=== PATIENT | female | born 1955 | race Caucasian/White ===

== ENCOUNTER 2020-02-20 10:29 | Observation (INO) | payer SELFPAY ==
[2020-02-20] MEDS ORDERED: METHYLPREDNISOLONE 40 MG INJ ONE (11:34)
[2020-02-20] MEDS ORDERED: DIPHENHYDRAMINE 50 MG/ML VIAL ONE (11:34)
[2020-02-20] MEDS ORDERED: FAMOTIDINE 20 MG/2 ML VIAL IV ONE (11:34)
[2020-02-20 11:46] LABS: Protime INR 0.97
[2020-02-20 11:50] LABS: Absolute Lymphocytes (CBC) 2.2 K/uL (0.7-4.9); Basophils % 0.4 % (0-1.3); Hematocrit 42.9 % (36.0-45.0); Lymphocytes % 18.4 % (15.3-44.8); MPV 8.8 fL (7.6-11.3); RBC Red Blood Cell Count 4.89 M/uL (3.86-4.86)
[2020-02-20 11:52] LABS: Albumin 3.5 g/dL (3.4-5.0); Bilirubin Direct 0.2 mg/dL (0-0.2); Bilirubin Total 0.6 mg/dL (0.2-1.0); Potassium 4.3 mmol/L (3.5-5.1); Protein, Total 7.1 g/dL (6.4-8.2)
--- NOTE | 2020-02-20 12:17 | EDPHYS ---
Physician Documentation [facility] Name: Anastasiia Bonner Age: 64 yrs Sex: Female : 1955 Arrival Date: 02/20/2020 Time: 10:30 Bed 19 Private MD: ED Physician Luis Miguel Moeller HPI: 02/19 11:15 This 64 yrs old Female presents to ER via Ambulatory with complaints of cp Allergic Reaction, Mouth Swelling. 11:15 The patient presents with rash, that is diffuse, swelling of the lips, swelling of the cp tongue. Onset: The symptoms/episode began/occurred 6 day(s) ago. Associated signs and symptoms: Pertinent negatives: abdominal pain, chest pain, fever, headache, shortness of breath, vomiting. Possible causes: The patient has no known obvious cause for the symptoms. At home the patient or guardian has treated the symptoms with Benadryl, steroids. Severity of symptoms: in the emergency department the symptoms are worse. The patient has not experienced similar symptoms in the past. Historical: - Allergies: 10:47 Unknown medication; aa5 - PMHx: 10:47 Hypertension; aa5 - PSHx: 10:47 Partial removal of intestine; Hernia repair; abdominal mesh; aa5 - Immunization history:: Adult Immunizations unknown. - Social history:: Smoking status: Patient reports the use of cigarette tobacco products. ROS: 11:20 Constitutional: Negative for body aches, chills, fever, poor PO intake. cp 11:20 Eyes: Negative for injury, pain, redness, and discharge. cp 11:20 ENT: Positive for difficulty swallowing, swelling of lips and tongue, Negative for drainage from ear(s), ear pain, sore throat, difficulty handling secretions. 11:20 Respiratory: Negative for cough, shortness of breath, wheezing. 11:20 Abdomen/GI: Negative for abdominal pain, vomiting, diarrhea, constipation. 11:20 Skin: Positive for rash. 11:20 Neuro: Negative for altered mental status, headache, weakness. 11:20 All other systems are negative. Exam: 11:30 Constitutional: The patient appears in no acute distress, alert, awake, cp non-diaphoretic, non-toxic, well developed, well nourished, uncomfortable. 11:30 Head/face: Noted is swelling, that is mild, of the mouth. cp 11:30 Eyes: Periorbital structures: appear normal, Pupils: equal, round, and reactive to light and accomodation, Extraocular movements: intact throughout, Conjunctiva: normal, no exudate, no injection, Lids and lashes: appear normal, bilaterally. 11:30 ENT: External ear(s): are unremarkable, Ear canal(s): are normal, clear, TM's: bulging, is not appreciated, bilaterally, erythema, is not appreciated, bilaterally, Nose: is normal, Mouth: Lips: mild swelling, Oral mucosa: pink and intact, Tongue: is swollen, mild, Posterior pharynx: Airway: no evidence of obstruction, patent, Uvula: normal, swelling, is not appreciated, erythema, is not appreciated. 11:30 Neck: ROM/movement: is normal, is supple, without pain, no range of motions cp limitations, no nuchal rigidity. 11:30 Chest/axilla: Inspection: normal, Palpation: is normal, no crepitus, no tenderness. 11:30 Cardiovascular: Rate: normal, Rhythm: regular, Edema: is not appreciated. 11:30 Respiratory: the patient does not display signs of respiratory distress, Respirations: normal, no use of accessory muscles, no retractions, labored breathing, is not present, Breath sounds: are clear throughout, no decreased breath sounds, no stridor, no wheezing. 11:30 Abdomen/GI: Inspection: abdomen appears normal, Bowel sounds: active, all quadrants, Palpation: abdomen is soft and non-tender, in all quadrants. 11:30 Skin: consistent with hives, and is diffusely located. 11:30 Neuro: Orientation: to person, place \T\ time. Mentation: is normal, Motor: moves all fours, strength is normal. 12:03 ECG was reviewed by the Attending Physician. cp Vital Signs: 10:44 BP 118 / 81; Pulse 65; Resp 16 S; Temp 98.4(O); Pulse Ox 99% on R/A; Weight 80.74 kg aa5 (R); Height 5 ft. 4 in. (162.56 cm) (R); Pain 4/10; 11:45 BP 148 / 77; Pulse 58; Resp 20; Pulse Ox 96% on R/A; ca1 12:18 BP 147 / 89; Pulse 61; Resp 17 S; Pulse Ox 96% on R/A; ca1 12:41 BP 143 / 96; Pulse 61; Resp 17 S; Pulse Ox 97% on R/A; ca1 13:09 BP 137 / 83; Pulse 61; Resp 18 S; Pulse Ox 97% on R/A; ca1 13:38 BP 145 / 78; Pulse 62; Resp 20; Pulse Ox 96% on R/A; ca1 14:21 BP 149 / 92; Pulse 60; Resp 17 S; Pulse Ox 97% on R/A; ca1 10:44 Body Mass Index 30.55 (80.74 kg, 162.56 cm) aa5 MDM: 11:02 Patient medically screened. herlinda 11:30 Differential diagnosis: anaphylaxis, angioedema. cp 12:15 Data reviewed: vital signs, nurses notes, lab test result(s), EKG. Physician cp consultation: Bryan Garnett MD was called at 12:15, was contacted at 12:15, regarding admission, to the medical/surgical unit. patient's condition. 02/19 11:10 Order name: Basic Metabolic Panel; Complete Time: 11:58 cp 02/19 11:58 Interpretation: Normal except: CL 108; BUN 23; GFR 60. cp 02/19 11:10 Order name: CBC with Diff; Complete Time: 11:58 cp 02/19 11:58 Interpretation: Normal except: WBC 12.2; RBC 4.89; REMEDIOS% 73.9; NEUT A 9.0. cp 02/19 11:10 Order name: LFT's; Complete Time: 11:58 cp 02/19 11:59 Interpretation: Normal except: AST 11; ALK 118; GLOB 3.6; A/G 1.0. cp 01 11:10 Order name: Magnesium; Complete Time: 11:58 cp 02/19 11:10 Order name: PT-INR; Complete Time: 11:58 cp 02/19 12:14 Order name: Urine Dipstick--Ancillary (enter results); Complete Time: 12:48 eb 02/19 12:48 Interpretation: Normal except: UESTR 1+. cp 02/19 11:10 Order name: Cardiac monitoring; Complete Time: 11:13 cp 02/19 11:10 Order name: IV Saline Lock; Complete Time: 11:25 cp 02/19 11:10 Order name: Labs collected and sent; Complete Time: 11:25 cp 05/01 11:10 Order name: O2 Per Protocol; Complete Time: 11: cp 02/19 11:10 Order name: O2 Sat Monitoring; Complete Time: : cp 02/19 11:10 Order name: Urine Dipstick-Ancillary (obtain specimen); Complete Time: 12:11 cp EC:03 Rate is 61 beats/min. Rhythm is regular. QRS interval is normal. QT interval is normal. cp Interpreted by me. Reviewed by me. Administered Medications: : Drug: SOLU-Medrol 80 mg Route: IVP; Site: right antecubital; aa5 12:30 Follow up: Response: No adverse reaction ca1 11:26 Drug: Pepcid 20 mg Route: IVP; Site: right antecubital; aa5 12:29 Follow up: Response: No adverse reaction ca1 11:27 Drug: Benadryl 50 mg Route: IVP; Site: right antecubital; aa5 12:29 Follow up: Response: No adverse reaction ca1 Disposition: 12:30 Chart complete. cp Disposition: 02/20/20 12:16 Hospitalization ordered by Bryan Garnett for Observation. Preliminary diagnosis is Anaphylactic reaction due to adverse effect of correct drug or medicament properly administered. - Bed requested for Telemetry/MedSurg (observation). - Status is Observation. ca1 - Condition is Stable. - Problem is new. - Symptoms are unchanged. Addendum: 02/21/2020 14:33 Co-signature as Attending Physician, Luis Miguel Moeller MD I agree with the assessment and c alaniz plan of care. Signatures: Dispatcher [employer] EDAZ Luis Miguel Moeller MD MD cha Calderon, Audri, RN RN aa5 Luis Miguel Mckeon PA PA cp Botello, Elizabeth eb Acob, Cheryl RN RN ca1 Corrections: (The following items were deleted from the chart) 02/19 14:02 12:16 Hospitalization Ordered by Bryan Garnett MD for Observation. Preliminary diagnosis eb is Anaphylactic reaction due to adverse effect of correct drug or medicament properly administered. Bed requested for Telemetry/MedSurg (observation). Status is Observation. Condition is Stable. Problem is new. Symptoms are unchanged. cp 14:02 14:02 02/20/2020 12:16 Hospitalization Ordered by Bryan Garnett MD for Observation. eb Preliminary diagnosis is Anaphylactic reaction due to adverse effect of correct drug or medicament properly administered. Bed requested for Telemetry/MedSurg (observation). Status is Observation. Condition is Stable. Problem is new. Symptoms are unchanged. eb 14:25 14:02 02/20/2020 12:16 Hospitalization Ordered by Bryan Garnett MD for Observation. ca1 Preliminary diagnosis is Anaphylactic reaction due to adverse effect of correct drug or medicament properly administered. Bed requested for Telemetry/MedSurg (observation). Status is Observation. Condition is Stable. Problem is new. Symptoms are unchanged. eb
--- NOTE | 2020-02-20 12:17 | ER ---
Nurse's Notes [facility] Name: Anastasiia Bonner Age: 64 yrs Sex: Female : 1955 Arrival Date: 02/20/2020 Time: 10:30 Bed 19 Private MD: Diagnosis: Anaphylactic reaction due to adverse effect of correct drug or medicament properly administered Presentation: 02/19 10:44 Chief complaint: Patient states: "I started with a hive on my abdomen on Sunday and aa5 now it's spreading all over". Hives noted to neck and abdomen. Pt states "my mouth is swollen too". Pt taking Prednisone and Benadryl since Sunday. Coronavirus screen: Proceed with normal triage. Patient denies a cough. Patient denies shortness of breath or difficulty breathing. Patient denies measured and/or subjective temperature greater than 100.4F prior to today's visit. Patient denies travel on a cruise ship or to a country the [facility] currently lists as an affected area. Patient denies contact with known and/or suspected case of COVID-19. Ebola Screen: Patient negative for fever greater than or equal to 101.5 degrees Fahrenheit, and additional compatible Ebola Virus Disease symptoms. Onset: The symptoms/episode began/occurred 6 day(s) ago. Anaphylaxis evaluation, no signs or symptoms of anaphylaxis were noted. Initial Sepsis Screen: Does the patient meet any 2 criteria? No. Patient's initial sepsis screen is negative. Does the patient have a suspected source of infection? No. Patient's initial sepsis screen is negative. Risk Assessment: Do you want to hurt yourself or someone else? Patient reports no desire to harm self or others. Onset of symptoms was January 2020. 10:44 Method Of Arrival: Ambulatory aa5 10:44 Acuity: MARJORIE 4 aa5 Historical: - Allergies: 10:47 Unknown medication; aa5 - PMHx: 10:47 Hypertension; aa5 - PSHx: 10:47 Partial removal of intestine; Hernia repair; abdominal mesh; aa5 - Immunization history:: Adult Immunizations unknown. - Social history:: Smoking status: Patient reports the use of cigarette tobacco products. Screenin:55 Abuse screen: Denies threats or abuse. Denies injuries from another. Nutritional ca1 screening: No deficits noted. Tuberculosis screening: No symptoms or risk factors identified. Fall Risk None identified. Assessment: 10:55 General: Appears in no apparent distress. comfortable, Behavior is calm, cooperative, ca1 appropriate for age. Pain: Denies pain. Neuro: Level of Consciousness is awake, alert, obeys commands, Oriented to person, place, time, situation. Cardiovascular: Heart tones S1 S2 present Capillary refill < 3 seconds Patient's skin is warm and dry. Respiratory: Airway is patent Respiratory effort is even, unlabored, Respiratory pattern is regular, symmetrical, Breath sounds are clear bilaterally. GI: Abdomen is round non-distended, Bowel sounds present X 4 quads. Abd is soft and non tender X 4 quads. : No signs and/or symptoms were reported regarding the genitourinary system. EENT: Throat is clear Reports "swelling on tongue and starting to go down on throat". Derm: Skin is intact, is healthy with good turgor, Skin is pink, warm \\T\\ dry. Rash noted that is raised, on scalp, abdomen and neck. Musculoskeletal: Circulation, motion, and sensation intact. Capillary refill < 3 seconds. 11:45 Reassessment: Patient appears in no apparent distress at this time. Patient and/or ca1 family updated on plan of care and expected duration. Pain level reassessed. Patient is alert, oriented x 3, equal unlabored respirations, skin warm/dry/pink. 12:41 Reassessment: Patient appears in no apparent distress at this time. Patient and/or ca1 family updated on plan of care and expected duration. Pain level reassessed. Patient is alert, oriented x 3, equal unlabored respirations, skin warm/dry/pink. Dr. Garnett at bedside. 13:38 Reassessment: Patient appears in no apparent distress at this time. Patient and/or ca1 family updated on plan of care and expected duration. Pain level reassessed. Patient is alert, oriented x 3, equal unlabored respirations, skin warm/dry/pink. 14:21 Reassessment: Patient appears in no apparent distress at this time. Patient and/or ca1 family updated on plan of care and expected duration. Pain level reassessed. Patient is alert, oriented x 3, equal unlabored respirations, skin warm/dry/pink. Vital Signs: 10:44 BP 118 / 81; Pulse 65; Resp 16 S; Temp 98.4(O); Pulse Ox 99% on R/A; Weight 80.74 kg aa5 (R); Height 5 ft. 4 in. (162.56 cm) (R); Pain 4/10; 11:45 BP 148 / 77; Pulse 58; Resp 20; Pulse Ox 96% on R/A; ca1 12:18 BP 147 / 89; Pulse 61; Resp 17 S; Pulse Ox 96% on R/A; ca1 12:41 BP 143 / 96; Pulse 61; Resp 17 S; Pulse Ox 97% on R/A; ca1 13:09 BP 137 / 83; Pulse 61; Resp 18 S; Pulse Ox 97% on R/A; ca1 13:38 BP 145 / 78; Pulse 62; Resp 20; Pulse Ox 96% on R/A; ca1 14:21 BP 149 / 92; Pulse 60; Resp 17 S; Pulse Ox 97% on R/A; ca1 10:44 Body Mass Index 30.55 (80.74 kg, 162.56 cm) aa5 ED Course: 10:30 Patient arrived in ED. as 10:38 Arm band placed on Patient placed in an exam room, on a stretcher. aa5 10:46 Triage completed. aa5 10:53 Carlene Boyle, RN is Primary Nurse. ca1 10:55 Patient has correct armband on for positive identification. Bed in low position. Call ca1 light in reach. Side rails up X 1. Pulse ox on. NIBP on. Warm blanket given. 11:01 Luis Miguel Mckeon PA is PHCP. cp 11:01 Luis Miguel Moeller MD is Attending Physician. cp 11:25 No provider procedures requiring assistance completed. Initial lab(s) drawn, by ar, ca1 sent to lab. Inserted saline lock: 20 gauge in right antecubital area, using aseptic technique. Blood collected. 11:30 EKG done, by biofuels processing technician. reviewed by Luis Miguel ALFONSO. aa5 12:12 Urine collected: clean catch specimen, clear. ca1 12:15 Bryan Garnett MD is Hospitalizing Provider. cp 12:18 Patient admitted, IV remains in place. ca1 Administered Medications: 11:25 Drug: SOLU-Medrol 80 mg Route: IVP; Site: right antecubital; aa5 12:30 Follow up: Response: No adverse reaction ca1 11:26 Drug: Pepcid 20 mg Route: IVP; Site: right antecubital; aa5 12:29 Follow up: Response: No adverse reaction ca1 11:27 Drug: Benadryl 50 mg Route: IVP; Site: right antecubital; aa5 12:29 Follow up: Response: No adverse reaction ca1 Outcome: 12:16 Decision to Hospitalize by Provider. cp 14:22 Admitted to Tele accompanied by tech, via wheelchair, room 425, with chart, Report ca1 called to MAKI Small 14:22 Condition: stable 14:22 Instructed on the need for admit. 14:25 Patient left the ED. ca1 Signatures: Nazia Yi Audri RN RN aa5 Luis Miguel Mckeon PA PA cp Acob, Cheryl, RN RN ca1 Corrections: (The following items were deleted from the chart) 11:13 10:55 Derm: Skin is intact, is healthy with good turgor, Skin is pink, warm \\T\\ dry. ca1 ca1
[2020-02-20 12:33] LABS: Urine Blood NEGATIVE (NEG); Urine Glucose NEGATIVE (NEG); Urine Protein NEGATIVE (NEG); Urine Specific Gravity 1.015 (1.005-1.030); Urine pH 5.5 (5.0-7.0)
[2020-02-20] MEDS ORDERED: DIPHENHYDRAMINE 50 MG/ML VIAL IV PRN (14:25)
[2020-02-20] MEDS ORDERED: ACETAMINOPHEN 500 MG TAB PO PRN (14:25)
[2020-02-20] MEDS ORDERED: ONDANSETRON 4 MG/2 ML VIAL IV PRN (14:25)
[2020-02-20 14:42] VITALS: BMI 30.5
[2020-02-20] MEDS: ENOXAPARIN 40 MG/0.4 ML SQ SCH (14:51)
[2020-02-20] MEDS: NA CHLORIDE 0.9% 1,000 ML IV SCH (14:54)
[2020-02-20] MEDS ORDERED: HOME MED [FLUTICASONE 50MCG NASAL SPRAY] NAS PRN (16:42)
[2020-02-20] MEDS: METHYLPREDNISOLONE 40 MG INJ IV SCH (20:24)
[2020-02-20] MEDS: AMITRIPTYLINE 50 MG TAB PO SCH (20:25)
[2020-02-20] MEDS: SUCRALFATE 1 GM TABLET PO SCH (20:25)
[2020-02-20] MEDS: FAMOTIDINE 20 MG TAB PO SCH (20:25)
[2020-02-20] MEDS: METOPROLOL XL 100 MG TAB PO SCH (20:25)
[2020-02-20] MEDS ORDERED: ROSUVASTATIN 10 MG TAB PO SCH (21:00)
--- NOTE | 2020-02-20 23:03 | HP ---
Date of Admission: 02/20/2020 Chief Complaint: Rash, throat swelling, and tongue swelling. Primary Care Physician: Out of town in [place]. History Of Present Illness: Patient is a 64-year-old female with past medical history of hypertensio n, hypothyroidism, hyperlipidemia, who has been on lisinopril for several years, comes in with rash t hat started on the abdomen, became diffuse and started on steroids for the past 6 days and now associ ated with swelling of the lips, the tongue, as well as some difficulty swallowing despite being on or al steroids. Patient's symptoms are constant, moderate, progressively worsening. Otherwise, denies any nausea, vomiting, fever, chills, or any shortness of breath. No abdominal pain. Denies any jiménez ges in her routine including any detergents or soaps or clothing. Patient is, however, visiting her family here in town from [place]. Patient did use Benadryl at home along with steroids, however, has worsening symptoms. In the ER, her workup revealed mildly elevated white blood cell count 12.2 with neutrophilia. UA was negative, negative nitrite, 1+ leukocyte esterase. Patient was then given Dianne u-Medrol IV and then referred for admission. When seen in the ER, she was awake, alert, oriented x3, did not wish to stay. However, after explaining the risks and benefits, the patient is okay with [facility] for observation. Allergies: NO KNOWN DRUG ALLERGIES. Past Medical History: Hypertension, hyperlipidemia, hypothyroidism. Past Surgical History: Five abdominal surgeries after colon laceration from hernia repair, abdominal mesh. Medications: Lisinopril, Synthroid, and statin. Social History: Patient smokes 2-3 cigarettes per day, smoking for several years. Denies any alcoho l or illicit drug use. Family History: Diabetes runs in the father and brother. Mom's side has heart disease. Review of Systems: Ten-point system reviewed, negative except as per HPI. Physical Examination: Vital Signs: Blood pressure 118/81, pulse 65, respirations 13, temperature 98.4, O2 99% on room air. BMI is 30. General: Awake, alert, and oriented x3. Some mild distress. Appears stated age female. HEENT: Normocephalic, atraumatic. PERRLA. EOMI. Moist mucous membranes. Patient has swelling of her tongue and lips, very minimal perioral swelling. Neck: Supple. No JVD. Trachea midline. CV: S1, S2. Regular rate and rhythm. Peripheral pulses present. Respiratory: Moving air well bilaterally. No wheezing or stridor. No use of accessory muscles. Gastrointestinal: Abdomen is soft, nontender, nondistended. Positive bowel sounds. No guarding or rigidity. Extremities: No clubbing, cyanosis, or edema. No calf tenderness. Neuro: Cranial nerves 2 through 12 intact grossly. No focal neurological deficits. Speech is anthony l. Skin: Patient has mild rash on the abdomen and the posterior leg with some swelling. Also has unrel ated rash on the left lower extremity from ant bites, seems to be well healing. Psych: Mood is okay. Affect is full. Insight and judgment are good. Laboratory Data: Sodium 140, potassium 4.3, chloride 108, CO2 of 28, BUN 23, creatinine 0.95, glucos e 92, calcium 9.3, magnesium 2. AST 11, ALT 32, alkaline phosphatase 118. INR 0.97. WBC 12.2, H an d H 14.3 and 42.9, platelets 197, neutrophils 73.9%. UA; negative nitrite, 1+ leukocyte esterase. M icro is pending. Assessment And Plan: A 64-year-old female with, 1.Anaphylaxis due to drug, likely from lisinopril. We will start on IV steroids as patient has fail ed therapy with oral steroids. Continue with Pepcid IV for H2 blocking effect and diphenhydramine as needed for itching and H1 blockage. Patient will likely benefit from EpiPen upon discharge. The mark griffith was explained the risks of angioedema. Her lisinopril will be stopped and if no other culprit is found, it should be added to her list of allergies. 2.Essential hypertension. Blood pressure is stable at this time in the one-teens. We will hold lis inopril for now. We will use p.r.n. hydralazine for systolic greater than 160. 3.Hypothyroidism. Continue Synthroid. 4.Hyperlipidemia. Continue statin. 5.Deep vein thrombosis prophylaxis with Lovenox. Plan: Admit patient to Med-Surg, place as observation. Likely discharge in the next 6-8 hours if im proved. We will place on telemetry. If no improvement, may need to be observed overnight, to discha rge in a.. /UMAIR Voice ID: [id number]
[2020-02-21] MEDS: NA CHLORIDE 0.9% 1,000 ML IV SCH (01:33)
[2020-02-21 01:59] VITALS: O2SAT 95
[2020-02-21] MEDS ORDERED: LEVOTHYROXINE SOD 0.075 MG TAB PO SCH (06:00)
[2020-02-21 06:02] LABS: Absolute Lymphocytes (CBC) 1.1 K/uL (0.7-4.9); Basophils % 0.4 % (0-1.3); Hematocrit 38.9 % (36.0-45.0); Lymphocytes % 8.4 % (15.3-44.8); MPV 9.2 fL (7.6-11.3); RBC Red Blood Cell Count 4.43 M/uL (3.86-4.86)
[2020-02-21 06:11] LABS: Albumin 3.2 g/dL (3.4-5.0); Bilirubin Total 0.4 mg/dL (0.2-1.0); Potassium 4.1 mmol/L (3.5-5.1); Protein, Total 6.8 g/dL (6.4-8.2)
[2020-02-21 07:41] VITALS: TEMP 98
[2020-02-21] MEDS: FAMOTIDINE 20 MG TAB PO SCH (08:48)
[2020-02-21] MEDS: ENOXAPARIN 40 MG/0.4 ML SQ SCH (08:48)
[2020-02-21] MEDS: SUCRALFATE 1 GM TABLET PO SCH (08:48)
[2020-02-21] MEDS: AMITRIPTYLINE 50 MG TAB PO SCH (08:48)
[2020-02-21] MEDS: METOPROLOL XL 100 MG TAB PO SCH (08:49)
[2020-02-21] MEDS: METHYLPREDNISOLONE 40 MG INJ IV SCH (08:50)
[2020-02-21] MEDS ORDERED: MONTELUKAST 10 MG TAB PO SCH (09:00)
[2020-02-21] MEDS ORDERED: hydroCHLOROthiazide 12.5 MG CAP PO SCH (09:00)
[2020-02-21] MEDS ORDERED: HOME MED 1 EA UNK (Rosuvastatin Calcium [Crestor] 20 MG) PO SCH (09:00)
[2020-02-21 09:23] LABS: Blood Morphology Comment NOT SEEN (NOT SEEN); Platelet Estimate ADEQ
[2020-02-21 11:22] VITALS: BP 150/81
--- NOTE | 2020-02-22 00:30 | DS ---
Date of Discharge: 02/21/2020 Discharge Diagnoses: 1.Acute anaphylaxis secondary to drug reaction from lisinopril. 2.Essential hypertension. 3.Hypothyroidism. 4.Mixed hyperlipidemia on statin. 5.Obesity, BMI 30. Hospital Course: Patient is a 64-year-old female, comes in with rash, throat swelling and tongue swe lling. Patient was started on oral steroid 6 days prior to admission, however had worsening swelling of the lips and tongue, difficulty swallowing, therefore came into the hospital. Patient was starte d on IV steroids, Benadryl as needed, and was counseled regarding avoiding lisinopril and other DIANNE i nhibitors for life. She has an anaphylactic reaction to DIANNE inhibitors and this was added to her all ergy list. Patient understands that she will need to obtain EpiPen from the pharmacy with a script p rovided, electronic script provided for emergencies and to keep her EpiPen with her at all times and to be aware and know how to use an EpiPen which can save her life in case she has throat swelling or lip swelling and shortness of breath. For her uncontrolled blood pressure, the patient will no longe r on DIANNE inhibitor. Her hydrochlorothiazide dose was increased and she will be on potassium replacem ent. She can follow up with her primary care physician to titrate her blood pressure medications. S he will continue her Synthroid and statin for her hypothyroidism and hyperlipidemia respectively. Sh e should have her TSH and lipid panel checked on a regular basis by PCP. Overall, patient did well. She was able to tolerate a diet. Her vital signs remained stable. She was afebrile. Her swelling improved. White count was slightly elevated secondary to steroids. She will be discharged home in a stable condition. Activity: As tolerated. Medications: As per medication reconciliation list. Patient to finish up her course of steroids and then continue taper as prescribed. Followup: Follow up with primary care physician in 1 week. Return to ER for worsening condition. H ave BMP test in 1 week. Diet: Heart healthy. Physical Examination: General: Awake, alert, oriented x3. No acute distress obese female. CV: S1, S2. Respiratory: Moving air well bilaterally. Abdomen: Soft, nontender, nondistended. Positive bowel sounds. Extremities: No clubbing, cyanosis, or edema. Neurologic: Nonfocal. HEENT: Minimal tongue and lip swelling. No drooling. No perioral swelling. /UMAIR Voice ID: [id number] Report ID: [id number]
--- NOTE | 2020-02-22 13:14 | EKG ---
Test Date: 2020-02-20 Test Time: 11:33:36 President + Publisher: LETICIA MEASUREMENT RESULTS: Intervals: Rate: 61 RI: QRSD: 78 QT: 412 QTc: 414 [place]: P: RI: QRS: 52 T: 60 INTERPRETIVE STATEMENTS: Junctional rhythm Abnormal ECG No previous ECG available for comparison Electronically Signed On 02-22-20 13:14:15 CDT by Georges Box
== END 2020-02-21 09:38 | disposition home or self-care (01) ==
LOC: ER 10:29 → ERHOLD 12:26 → 4TH 14:21
PROVIDERS: ADMIT Family Medicine; ATTEND Family Medicine
DX: T88.6XXA Anaphylactic reaction due to adverse effect of correct drug or medicament properly administered, initial encounter (principal); T46.4X5A Adverse effect of angiotensin-converting-enzyme inhibitors, initial encounter; R21 Rash and other nonspecific skin eruption; I10 Essential (primary) hypertension; E03.9 Hypothyroidism, unspecified; E78.2 Mixed hyperlipidemia; F17.210 Nicotine dependence, cigarettes, uncomplicated; E66.9 Obesity, unspecified; Z68.30 Body mass index [BMI] 30.0-30.9, adult; Z83.3 Family history of diabetes mellitus; Z82.49 Family history of ischemic heart disease and other diseases of the circulatory system
CPT/HCPCS: 36415; 80048; 80053; 80076; 81003; 83735; 85025; 85610; 93005; 94760; 96374; 96375; 99285; G0378; J1200; J1650; J2920; J7030

== ENCOUNTER 2020-02-29 12:24 | Emergency (ER) | payer SELFPAY ==
--- OUTSIDE RECORDS SUMMARY | 2020-02-29 12:32 | XMS REPORT ---
:1955 Author Organization [facility] t Address [address] [place] [address] Care Team Providers Name Role Phone Unavailable Unavailable Unavailable Payers Payer Name Policy Type Policy Number Effective Date Expiration D ate Problems This patient has no known problems. Allergies, Adverse Reactions, Alerts Allergy Name Allergy Status Severity Reaction(s) Onset Inactive Treat ing Comments Type Date Date Clinician gabapentin DA Active [facility] 2019-03 00:00:0 0 duloxetine DA Active 2019-03 00:00:0 0 pregabalin DA Active [facility] 2019-03 00:00:0 0 chicken DA Active 2019-03 00:00:0 0 mold DA Active 2019-03 00:00:0 0 chicken FA Active 2019-03 00:00:0 0 gabapentin DA Active [facility] 2019-03 00:00:0 0 duloxetine DA Active 2019-03 00:00:0 0 pregabalin DA Active [facility] 2019-03 00:00:0 0 chicken DA Active 2019-03 00:00:0 0 mold DA Active 2019-03 00:00:0 0 gabapentin DA Active [place] 2017-10 00:00:0 0 pregabalin DA Active VA 2017-04 00:00:0 0 chicken DA Active 2017-04 00:00:0 0 Medications This patient has no known medications. Results Test Description Test Time Test Comments Text Results Atomic Results Result Comments CREATININE W ESTIMATED GFR 2019-08-30 06:09:00 Test Item Value Reference Range Comments BEDSIDE CREATININE (test code = CREATBED) 1.0 MG/DL 0.6-1. 3 GLOMERULAR FILTRATION RATE POC (test code = GFRBED) 60 ML/MIN ENTER BEDSIDE CREATININE RESULT: 0.98Serial Number: [id number] Name of User Performing Test: HENNY- CT ABD PELVIS [id number] 16:35:00 Name: NENA HERNANDEZ [place] [facility] : 1955 Age/S: 63 / F [address] [place] [address] Blvd Unit #: [id number] Loc: Andrew [id number] Phys: Stef Connelly MD Acct: [id number] Dis Date: Status: REG CLI PHONE #: [phone] Exam Date: 08/29/2019 1038 FAX #: [phone] Reason: K43.2 RECURRENT INCISIONAL HERNIA EXAMS: CPTCODE: [id number] CT ABD PELVIS W/CONT 33022 EXAM: CT ABD OMEN/PELVIS WITH CONTRAST HISTORY: 63-year-old female with recurrent incisional hernia TECHNIQUE: Helical imaging was performed diaphragm through the symphysis with multiplanar reformations obtained. IV CONTRAST: 100cc Isovue 300 GI CONTRAST: YesDOSE: CT imaging performed at this location utilizes radiation dose optimization technique which includes one or more of the followin) Automated exposure control; 2) Adjustment of the mA and/or kV according to patient's size; 3) Use of iterative reconstruction techniques DLP (mGy-cm): 585.1 COMPARISON: CT abdomen/pelvis 04/19/2019 FINDINGS: LOWER CHEST: The visualized lung bases are clear. Normal size of the heart is noted.Stable fluid density right pericardial cyst. SOLID ORGANS: No focal hepatic lesion or intrahepatic biliary ductal dilatation is seen. No calcified gallstone is noted.The spleen, pancreas, and adrenal glands are normal in appearance. Lobulated renal contour bilaterally likely from remote insult. Both kidneys demonstrate normal corticomedullary phase of enhancement. No renal/ureteral calculus, hydronephrosis, or mass is apparent. BOWEL: Post surgical changes again noted involving the small and large bowel in the anterior abdomen. The small bowel and colon are normal in caliber without wall thickening. Moderate stool burden in the right colon. PERITONEUM: No free intraperitoneal fluid or air. Previously described small fat herniations through the anterior midline are no longeridentified, though there has been interval progression of rectus diastasis with minimal intervening subcutaneous fat between the anterior peritoneal wall and the abdominal surface in the upper abdomen. RETROPERITONEUM: Normal caliber of the abdominal aorta is noted. Mild aortoiliac atherosclerotic calcifications. No lymphadenopathy is seen. PAGE 1 Signed Report (CONTINUED) Name: NENA HERNANDEZ [facility] : 1955 Age/S: 63 / F [address] [place] [address] Blvd Unit #: [id number] Loc: [place] [address] Phys: Stef Connelly MD Acct: [id number] Dis Date: Status: REG CLI PHONE #: [phone] Exam Date: 08/29/2019 1038 FAX #: [phone] Reason: K43.2 RECURRENT INCISIONAL HERNIA EXAMS: CPT CODE: [id number] CT ABD PELVIS W/CONT 93307 <Continued> PELVIS: The visualized urinary bladder wall is normal thickness. Uterus is absent. MUSCULOSKELETAL: No acute osseous abnormality is seen. No destructive lytic or blastic osseous lesion is noted.Degenerative changes in the spine. IMPRESSION: 1. Diastasis recti, progressed from prior exam. 2. Moderate stool burden in the right colon. Consider correlation for constipation. SL: [id number] at 1635 Reported and signed by: Phylicia Herman M.D. CC: Stef Connelly MD; Edson Rojas Sr, MD Technologist:RT Garrick(R) CTDI: DLP: Trnscb Date/Time: 08/29/2019 (1635) [email or web address] Orig Print D/T: S: 08/29/2019 (1638) PAGE 2 Signed ReportGLUBED 2019-04-27 10:41:00 Test Item Value Reference Range Comments GLUBED (test code = GLUBED) 140 MG/DL 70-110 Perf ormed by certified cocoa powder mixer operator at [facility] [id number] 20:38:00 Test Item Value Reference Range Comments GLUBED (test code = GLUBED) 135 MG/DL 70-110 Perf ormed by certified cocoa powder mixer operator at [facility] [id number] 17:05:00 Test Item Value Reference Range Comments GLUBED (test code = GLUBED) 102 MG/DL 70-110 Perf ormed by certified cocoa powder mixer operator at [facility] [id number] 12:54:00 Test Item Value Reference Range Comments GLUBED (test code = GLUBED) 91 MG/DL 70-110 Perf ormed by certified cocoa powder mixer operator at [facility] [id number] 08:45:00 Test Item Value Reference Range Comments GLUBED (test code = GLUBED) 112 MG/DL 70-110 Perf ormed by certified cocoa powder mixer operator at [facility] BASIC METABOLIC [id number] 08:31:00 Test Item Value Reference Range Comments SODIUM (test code = NA) 138 mEq/L 134-147 POTASSIUM (test code = K) 3.8 mEq/L 3.4-5.0 CHLORIDE (test code = CL) 104 mEq/L 100-108 CARBON DIOXIDE (test code = 25 mEq/L 21-33 CO2) ANION GAP (test code = GAP) 13 0-20 GLUCOSE (test code = GLU) 88 mg/dL 70-110 BLOOD UREA NITROGEN (test code 10 mg/dL 7-18 = BUN) GLOMERULAR FILTRATION RATE 85.1 80-90 Units of measure = (test code = GFR) ml/min/1.73 m2 CREATININE (test code = CREAT) 0.7 mg/dL 0.6-1.3 CALCIUM (test code = CA) 9.3 mg/dL 8.0-10.5 [id number] 08:31:00 Test Item Value Reference Range Comments PHOSPHOROUS (test code = PHOS) 3.9 mg/dL 2.5-4.9 [id number] 08:31:00 Test Item Value Reference Range Comments MAGNESIUM (test code = MAG) 1.80 mg/dL 1.8-2.4 CBC W/AUTO [id number] 08:09:00 Test Item Value Reference Range Comments WHITE BLOOD CELL (test code = WBC) 11.26 x10 3/uL 4.5-11.0 RED BLOOD CELL (test code = RBC) 3.19 x10 6/uL 3.54-5.02 HEMOGLOBIN (test code = HGB) 9.5 g/dL 11.0-15.0 HEMATOCRIT (test code = HCT) 30.3 % 33.0-45.0 MEAN CELL VOLUME (test code = MCV) 95.0 fL 81.0-99.0 MEAN CELL HGB (test code = MCH) 29.8 pg 27.0-33.0 MEAN CELL HGB CONCETRATION (test code = MCHC) 31.4 g/dL 33 .0-37.0 RED CELL DISTRIBUTION WIDTH CV (test code = 13.3 % 11.5 -14.5 RDW) RED CELL DISTRIBUTION WIDTH SD (test code = 46.4 fL 37.0 -54.0 RDW-SD) PLATELET COUNT (test code = PLT) 368 x10 3/uL 150-400 MEAN PLATELET VOLUME (test code = MPV) 11.1 fL 7.0-9.0 NEUTROPHIL % (test code = NT%) 72.3 % 56.0-77.0 IMMATURE GRANULOCYTE % (test code = IG%) 0.5 % 0.0-2.0 LYMPHOCYTE % (test code = LY%) 16.3 % 14.0-32.0 MONOCYTE % (test code = MO%) 8.1 % 4.8-9.0 EOSINOPHIL % (test code = EO%) 2.2 % 0.3-3.7 BASOPHIL % (test code = BA%) 0.6 % 0.0-2.0 NUCLEATED RBC % (test code = NRBC%) 0.0 % 0-0 NEUTROPHIL # (test code = NT#) 8.13 x10 3/uL 2.0-7.6 IMMATURE GRANULOCYTE # (test code = IG#) 0.06 x10 3/uL 0.00-0. 03 LYMPHOCYTE # (test code = LY#) 1.84 x10 3/uL 1.0-3.8 MONOCYTE # (test code = MO#) 0.91 x10 3/uL 0.1-0.8 EOSINOPHIL # (test code = EO#) 0.25 x10 3/uL 0.0-0.2 BASOPHIL # (test code = BA#) 0.07 x10 3/uL 0.0-0.2 NUCLEATED RBC # (test code = NRBC#) 0.00 x10 3/uL 0.0-0.1 MANUAL DIFF REQUIRED (test code = MDIFF) NO [id number] 22:35:00 Test Item Value Reference Range Comments GLUBED (test code = GLUBED) 87 MG/DL 70-110 Perf ormed by certified cocoa powder mixer operator at [facility] [id number] 16:22:00 Test Item Value Reference Range Comments GLUBED (test code = GLUBED) 108 MG/DL 70-110 Perf ormed by certified cocoa powder mixer operator at [facility] [id number] 11:51:00 Test Item Value Reference Range Comments GLUBED (test code = GLUBED) 92 MG/DL 70-110 Perf ormed by certified cocoa powder mixer operator at [facility] CBC W/AUTO [id number] 06:56:00 Test Item Value Reference Range Comments WHITE BLOOD CELL (test code = WBC) 12.36 x10 3/uL 4.5-11.0 RED BLOOD CELL (test code = RBC) 3.11 x10 6/uL 3.54-5.02 HEMOGLOBIN (test code = HGB) 9.5 g/dL 11.0-15.0 HEMATOCRIT (test code = HCT) 29.7 % 33.0-45.0 MEAN CELL VOLUME (test code = MCV) 95.5 fL 81.0-99.0 MEAN CELL HGB (test code = MCH) 30.5 pg 27.0-33.0 MEAN CELL HGB CONCETRATION (test code = MCHC) 32.0 g/dL 33 .0-37.0 RED CELL DISTRIBUTION WIDTH CV (test code = 13.3 % 11.5 -14.5 RDW) RED CELL DISTRIBUTION WIDTH SD (test code = 45.6 fL 37.0 -54.0 RDW-SD) PLATELET COUNT (test code = PLT) 308 x10 3/uL 150-400 MEAN PLATELET VOLUME (test code = MPV) 11.4 fL 7.0-9.0 NEUTROPHIL % (test code = NT%) 68.3 % 56.0-77.0 IMMATURE GRANULOCYTE % (test code = IG%) 0.6 % 0.0-2.0 LYMPHOCYTE % (test code = LY%) 19.7 % 14.0-32.0 MONOCYTE % (test code = MO%) 8.3 % 4.8-9.0 EOSINOPHIL % (test code = EO%) 2.4 % 0.3-3.7 BASOPHIL % (test code = BA%) 0.7 % 0.0-2.0 NUCLEATED RBC % (test code = NRBC%) 0.0 % 0-0 NEUTROPHIL # (test code = NT#) 8.44 x10 3/uL 2.0-7.6 IMMATURE GRANULOCYTE # (test code = IG#) 0.07 x10 3/uL 0.00-0. 03 LYMPHOCYTE # (test code = LY#) 2.43 x10 3/uL 1.0-3.8 MONOCYTE # (test code = MO#) 1.03 x10 3/uL 0.1-0.8 EOSINOPHIL # (test code = EO#) 0.30 x10 3/uL 0.0-0.2 BASOPHIL # (test code = BA#) 0.09 x10 3/uL 0.0-0.2 NUCLEATED RBC # (test code = NRBC#) 0.00 x10 3/uL 0.0-0.1 MANUAL DIFF REQUIRED (test code = MDIFF) NO [id number] 20:26:00 Test Item Value Reference Range Comments GLUBED (test code = GLUBED) 85 MG/DL 70-110 Perf ormed by certified cocoa powder mixer operator at [facility] [id number] 17:35:00 Test Item Value Reference Range Comments GLUBED (test code = GLUBED) 88 MG/DL 70-110 Perf ormed by certified cocoa powder mixer operator at [facility] [id number] 11:57:00 Test Item Value Reference Range Comments GLUBED (test code = GLUBED) 88 MG/DL 70-110 Perf ormed by certified cocoa powder mixer operator at [facility] SURGICAL [id number] 09:01:00 RUN DATE: 04/24/19 [facility] *LIVE* PAGE 1 RUN TIME: 900 Specimen Inquiry RUN USER: INTERFACE PATIENT: NENA HERNANDEZ [facility]: [facility] U #: [id number] AGE/SX: 63/F ROOM: [facility] RE04/13/19[facility] DR: Pancho Luu MD : 59 BED: 1 DIS: STATUS: ADM IN TLOC: SPEC #: [id number] RECD: 04/22/19 STATUS: KAYLAH DIMPLE #: [id number] GENO: 04/22/19 [facility] DR: Pancho Luu MD ENTERED: 04/24/19 SP TYPE: SURG SPEC OTHR DR: Self Referred Keren Dennis MD, Mohamad MD Du, Khoi H MD Nyalakonda, Harita MD Subramanyam, Kalyanam MDORDERED: GM LEVEL 4 CODES: [id number] - STOMACH, NOS COPIES TO: Self Referred Keren Dennis MD [address] [address] Irais Rosario MD [address] [address] [place] [address] [facility] [address] [place] [address] Stef Connelly MD [address] [place] [address] [place] Gu[place] [address] [place] [address] Allison Calvo MD [address] [place] [address] PROCEDURES: GM LEVEL 4 (Incomplete) CONTINUED ON NEXT PAGE RUN DATE: 04/24/19 [facility] *LIVE* PAGE 2 RUN TIME: Inquiry RUN USER: INTERFACE SPEC #: [id number] PATIENT: NENA HERNANDEZ [place] #[id number] (Continued)----- ------- TISSUES: 1. STOMACH, NOS - Stomach, body, bx. FINAL DIAGNOSIS Stomach, body, bx.: Mild chronic gastritis, nonactive; no Helicobacter pylori organisms identified. GROSS AND MICROSCOPIC GROSS EXAMINATION: Received is/are the specimen/s designated with the appropriate dimensions and block designation: 1. Stomach, body, bx.: 2 segments of pink-martinez tissue, measuring upto 0.5 cm in greatest dimension each. MICROSCOPIC EXAMINATION: The gastric mucosa reveals mild foveolar hyperplasia with increased fibrosis and chronic inflammation in the lamina propria. No significant acute inflammation is identified. No Helicobacter pylori organisms are identified with the immunostain, and no intestinal metaplasia is identified with the alcian blue/PAS stain. (When special stains have been reviewed, the appropriate positive/negative controls have been reviewed and are appropriately positive/negative). POST-OP DIAGNOSIS Gastric erosions PRE-OP DIAGNOSIS Abdominal pain, anemia, upper gastrointestinal bleed Signed SIGNATURE ON FILE Kadie Mackey MD 04/24/19900 END OF REPORT BASIC METABOLIC [id number] 07:45:00 Test Item Value Reference Range Comments SODIUM (test code = NA) 139 mEq/L 134-147 POTASSIUM (test code = K) 3.7 mEq/L 3.4-5.0 CHLORIDE (test code = CL) 107 mEq/L 100-108 CARBON DIOXIDE (test code = 24 mEq/L 21-33 CO2) ANION GAP (test code = GAP) 12 0-20 GLUCOSE (test code = GLU) 96 mg/dL 70-110 BLOOD UREA NITROGEN (test code 14 mg/dL 7-18 = BUN) GLOMERULAR FILTRATION RATE 101.6 80-90 Units of measure = (test code = GFR) ml/min/1.73 m2 CREATININE (test code = CREAT) 0.6 mg/dL 0.6-1.3 CALCIUM (test code = CA) 8.7 mg/dL 8.0-10.5 [id number] 07:45:00 Test Item Value Reference Range Comments PHOSPHOROUS (test code = PHOS) 2.8 mg/dL 2.5-4.9 [id number] 07:45:00 Test Item Value Reference Range Comments MAGNESIUM (test code = MAG) 1.90 mg/dL 1.8-2.4 [id number] 05:48:00 Test Item Value Reference Range Comments GLUBED (test code = GLUBED) 94 MG/DL 70-110 Perf ormed by certified cocoa powder mixer operator at [facility] [id number] 23:24:00 Test Item Value Reference Range Comments GLUBED (test code = GLUBED) 95 MG/DL 70-110 Perf ormed by certified cocoa powder mixer operator at [facility] [id number] 19:10:00 Test Item Value Reference Range Comments GLUBED (test code = GLUBED) 81 MG/DL 70-110 Perf ormed by certified cocoa powder mixer operator at [facility] [id number] 12:17:00 Test Item Value Reference Range Comments GLUBED (test code = GLUBED) 90 MG/DL 70-110 Perf ormed by certified cocoa powder mixer operator at [facility] [id number] 10:24:00 Test Item Value Reference Range Comments GLUBED (test code = GLUBED) 130 MG/DL 70-110 Perf ormed by certified cocoa powder mixer operator at [facility] [id number] 05:50:00 Test Item Value Reference Range Comments GLUBED (test code = GLUBED) 137 MG/DL 70-110 Perf ormed by certified cocoa powder mixer operator at [facility] [id number] 05:50:00 Test Item Value Reference Range Comments GLUBED (test code = GLUBED) 136 MG/DL 70-110 Perf ormed by certified cocoa powder mixer operator at [facility] CBC W/AUTO [id number] 05:41:00 Test Item Value Reference Range Comments WHITE BLOOD CELL (test code = WBC) 16.85 x10 3/uL 4.5-11.0 RED BLOOD CELL (test code = RBC) 3.29 x10 6/uL 3.54-5.02 HEMOGLOBIN (test code = HGB) 10.0 g/dL 11.0-15.0 HEMATOCRIT (test code = HCT) 30.8 % 33.0-45.0 MEAN CELL VOLUME (test code = MCV) 93.6 fL 81.0-99.0 MEAN CELL HGB (test code = MCH) 30.4 pg 27.0-33.0 MEAN CELL HGB CONCETRATION (test code = MCHC) 32.5 g/dL 33 .0-37.0 RED CELL DISTRIBUTION WIDTH CV (test code = 13.0 % 11.5 -14.5 RDW) RED CELL DISTRIBUTION WIDTH SD (test code = 44.4 fL 37.0 -54.0 RDW-SD) PLATELET COUNT (test code = PLT) 308 x10 3/uL 150-400 MEAN PLATELET VOLUME (test code = MPV) 10.5 fL 7.0-9.0 NEUTROPHIL % (test code = NT%) 75.8 % 56.0-77.0 IMMATURE GRANULOCYTE % (test code = IG%) 1.0 % 0.0-2.0 LYMPHOCYTE % (test code = LY%) 13.5 % 14.0-32.0 MONOCYTE % (test code = MO%) 6.2 % 4.8-9.0 EOSINOPHIL % (test code = EO%) 3.1 % 0.3-3.7 BASOPHIL % (test code = BA%) 0.4 % 0.0-2.0 NUCLEATED RBC % (test code = NRBC%) 0.0 % 0-0 NEUTROPHIL # (test code = NT#) 12.77 x10 3/uL 2.0-7.6 IMMATURE GRANULOCYTE # (test code = IG#) 0.17 x10 3/uL 0.00-0. 03 LYMPHOCYTE # (test code = LY#) 2.27 x10 3/uL 1.0-3.8 MONOCYTE # (test code = MO#) 1.04 x10 3/uL 0.1-0.8 EOSINOPHIL # (test code = EO#) 0.53 x10 3/uL 0.0-0.2 BASOPHIL # (test code = BA#) 0.07 x10 3/uL 0.0-0.2 NUCLEATED RBC # (test code = NRBC#) 0.00 x10 3/uL 0.0-0.1 MANUAL DIFF REQUIRED (test code = MDIFF) NO COMPREHENSIVE METABOLIC [id number] 05:26:00 Test Item Value Reference Range Comments SODIUM (test code = NA) 139 mEq/L 134-147 POTASSIUM (test code = K) 3.4 mEq/L 3.4-5.0 CHLORIDE (test code = CL) 104 mEq/L 100-108 CARBON DIOXIDE (test code = 29 mEq/L 21-33 CO2) ANION GAP (test code = GAP) 9 0-20 GLUCOSE (test code = GLU) 118 mg/dL 70-110 BLOOD UREA NITROGEN (test code 19 mg/dL 7-18 = BUN) GLOMERULAR FILTRATION RATE 101.6 80-90 Units of measure = (test code = GFR) ml/min/1.73 m2 CREATININE (test code = CREAT) 0.6 mg/dL 0.6-1.3 TOTAL PROTEIN (test code = 5.9 g/dL 6.4-8.2 PROT) ALBUMIN (test code = ALB) 1.90 g/dL 3.4-5.0 CALCIUM (test code = CA) 8.1 mg/dL 8.0-10.5 BILIRUBIN TOTAL (test code = 0.40 mg/dL 0.0-1.0 BILT) SGOT/AST (test code = AST) 17 IUnit/L 15-37 SGPT/ALT (test code = ALT) 26 IUnit/L 15-65 ALKALINE PHOSPHATASE TOTAL 104 IUnit/L 20-125 (test code = ALKP) [id number] 05:26:00 Test Item Value Reference Range Comments PHOSPHOROUS (test code = PHOS) 2.6 mg/dL 2.5-4.9 [id number] 05:26:00 Test Item Value Reference Range Comments MAGNESIUM (test code = MAG) 1.80 mg/dL 1.8-2.4 [id number] 23:55:00 Test Item Value Reference Range Comments GLUBED (test code = GLUBED) 129 MG/DL 70-110 Perf ormed by certified cocoa powder mixer operator at [facility] [id number] 18:00:00 Test Item Value Reference Range Comments GLUBED (test code = GLUBED) 116 MG/DL 70-110 Perf ormed by certified cocoa powder mixer operator at [facility] [id number] 18:00:00 Test Item Value Reference Range Comments GLUBED (test code = GLUBED) 102 MG/DL 70-110 Perf ormed by certified cocoa powder mixer operator at [facility] - XR CHEST 2 [id number] 16:26:00 FAX: Pancho Luu MD [phone] [place]: St: ADM FAX: Apurva Devi [phone] FAX: Allison Barajas [phone] Name: NENA HERNANDEZ [facility] : 1955 Age/S: 63/F [address] [place] [address] Unit #: [id number] Loc: G.M302 [place] [address] Phys: Apurva Devi Acct: [id number] Dis Date: Status: ADM IN PHONE #: [phone] Exam Date: 04/22/2019 1622 FAX #: [phone] Reason: high WBC EXAMS: CPT CODE: [id number] XR CHEST 2 V 86469 Two-view chest: HISTORY: Post abdominal surgery with elevated white blood cell count. FINDINGS: Comparison is made to 04/17/2019. Atelectasis left lung base is stable. Decreasing bibasilar hazy interstitial lung infiltrate. There is a stable small amount of right pleural effusion with blunting in the angle. Right PICC line is present with the tip over the upper SVC. NG tube no longer seen. IMPRESSION: 1. Decreasing bibasilar interstitial infiltrate. 2. Stable left basilar subsegmental atelectasis. SL: [id number] at 1635 Reported and signed by: Bartolo Mccollum M.D. CC: Pancho Luu MD; Apurva ALFONSO; [facility] [place] Technologist: RT Momo(R) Trnscrd Date/Time/By: 04/22/2019 (2303) : By: Ingrid Orig Print D/T: S: 04/22/2019 (1091) PAGE 1 Signed ReportC W/AUTO [id number] 11:55:00 Test Item Value Reference Range Comments WHITE BLOOD CELL (test code = WBC) 19.59 x10 3/uL 4.5-11.0 RED BLOOD CELL (test code = RBC) 3.54 x10 6/uL 3.54-5.02 HEMOGLOBIN (test code = HGB) 10.7 g/dL 11.0-15.0 HEMATOCRIT (test code = HCT) 33.0 % 33.0-45.0 MEAN CELL VOLUME (test code = MCV) 93.2 fL 81.0-99.0 MEAN CELL HGB (test code = MCH) 30.2 pg 27.0-33.0 MEAN CELL HGB CONCETRATION (test code = MCHC) 32.4 g/dL 33 .0-37.0 RED CELL DISTRIBUTION WIDTH CV (test code = 12.9 % 11.5 -14.5 RDW) RED CELL DISTRIBUTION WIDTH SD (test code = 44.6 fL 37.0 -54.0 RDW-SD) PLATELET COUNT (test code = PLT) 287 x10 3/uL 150-400 MEAN PLATELET VOLUME (test code = MPV) 10.5 fL 7.0-9.0 NEUTROPHIL % (test code = NT%) 81.6 % 56.0-77.0 IMMATURE GRANULOCYTE % (test code = IG%) 1.2 % 0.0-2.0 LYMPHOCYTE % (test code = LY%) 9.2 % 14.0-32.0 MONOCYTE % (test code = MO%) 4.6 % 4.8-9.0 EOSINOPHIL % (test code = EO%) 3.0 % 0.3-3.7 BASOPHIL % (test code = BA%) 0.4 % 0.0-2.0 NUCLEATED RBC % (test code = NRBC%) 0.0 % 0-0 NEUTROPHIL # (test code = NT#) 16.00 x10 3/uL 2.0-7.6 IMMATURE GRANULOCYTE # (test code = IG#) 0.23 x10 3/uL 0.00-0. 03 LYMPHOCYTE # (test code = LY#) 1.80 x10 3/uL 1.0-3.8 MONOCYTE # (test code = MO#) 0.90 x10 3/uL 0.1-0.8 EOSINOPHIL # (test code = EO#) 0.59 x10 3/uL 0.0-0.2 BASOPHIL # (test code = BA#) 0.07 x10 3/uL 0.0-0.2 NUCLEATED RBC # (test code = NRBC#) 0.00 x10 3/uL 0.0-0.1 MANUAL DIFF REQUIRED (test code = MDIFF) NO HEPATIC FUNCTION [id number] 08:49:00 Test Item Value Reference Range Comments TOTAL PROTEIN (test code = PROT) 6.0 g/dL 6.4-8.2 ALBUMIN (test code = ALB) 2.10 g/dL 3.4-5.0 BILIRUBIN TOTAL (test code = BILT) 0.60 mg/dL 0.0-1.0 BILIRUBIN DIRECT (test code = BILD) 0.30 MG/DL 0.0-0.30 BILIRUBIN INDIRECT (test code = BILIND) 0.30 MG/DL SGOT/AST (test code = AST) 17 IUnit/L 15-37 SGPT/ALT (test code = ALT) 33 IUnit/L 15-65 ALKALINE PHOSPHATASE TOTAL (test code = ALKP) 108 IUnit/L 20 -125 BASIC METABOLIC [id number] 07:44:00 Test Item Value Reference Range Comments SODIUM (test code = NA) 137 mEq/L 134-147 POTASSIUM (test code = K) 3.0 mEq/L 3.4-5.0 CHLORIDE (test code = CL) 100 mEq/L 100-108 CARBON DIOXIDE (test code = 32 mEq/L 21-33 CO2) ANION GAP (test code = GAP) 8 0-20 GLUCOSE (test code = GLU) 134 mg/dL 70-110 BLOOD UREA NITROGEN (test code 22 mg/dL 7-18 = BUN) GLOMERULAR FILTRATION RATE 101.6 80-90 Units of measure = (test code = GFR) ml/min/1.73 m2 CREATININE (test code = CREAT) 0.6 mg/dL 0.6-1.3 CALCIUM (test code = CA) 8.4 mg/dL 8.0-10.5 [id number] 07:44:00 Test Item Value Reference Range Comments PHOSPHOROUS (test code = PHOS) 2.9 mg/dL 2.5-4.9 [id number] 07:44:00 Test Item Value Reference Range Comments MAGNESIUM (test code = MAG) 2.00 mg/dL 1.8-2.4 [id number] 07:22:00 Test Item Value Reference Range Comments GLUBED (test code = GLUBED) 136 MG/DL 70-110 Perf ormed by certified cocoa powder mixer operator at [facility] PROTHROMBIN [id number] 05:48:00 Test Item Value Reference Range Comments PROTHROMBIN TIME PATIENT 14.3 SECONDS 9.3-12.9 (test code = PTP) INTERNATIONAL NORMAL RATIO 1.3 0.8-1.2 TARGET INR BY (test code = INR) INDICATION I ndication INR1. Prophylax is of venous thrombosis 2.0 - 3.0 (orthopedi c surgery), Prophylaxis of venous thrombosis (othe r than high-risk surg yumiko), Treatment of Melonie p Vein Thrombosis/Pulmo nary Embolism, Preven tion of systemic embolis m - Tissue heart valves, Acute Myocardial Infar ction (to prevent system ic embolism), Valvular heart d isease, Atrial Fibrillat ion, Bileaflet mechan ical valve in aortic positi on.2. Mechanical prost hetic valves (high risk), 2.5 - 3.5 Presence of Lupu s Anticoagulant or Antiphospholipid Antibodies, Prevention of systemic embolism - Acute Myocardial Infarction (to prevent recurrent infarc t). THROMBOPLASTIN TIME [id number] 05:48:00 Test Item Value Reference Range Comments THROMBOPLASTIN TIME PARTIAL 31.7 Seconds 25.0-39.5 Therapeutic Range: (test code = PTT) 50.4 - 88.3 Se conds Effective 0 02/04/2019 CBC W/AUTO [id number] 05:30:00 Test Item Value Reference Range Comments WHITE BLOOD CELL (test code = WBC) 19.59 x10 3/uL 4.5-11.0 RED BLOOD CELL (test code = RBC) 3.54 x10 6/uL 3.54-5.02 HEMOGLOBIN (test code = HGB) 10.7 g/dL 11.0-15.0 HEMATOCRIT (test code = HCT) 33.0 % 33.0-45.0 MEAN CELL VOLUME (test code = MCV) 93.2 fL 81.0-99.0 MEAN CELL HGB (test code = MCH) 30.2 pg 27.0-33.0 MEAN CELL HGB CONCETRATION (test code = MCHC) 32.4 g/dL 33 .0-37.0 RED CELL DISTRIBUTION WIDTH CV (test code = 12.9 % 11.5 -14.5 RDW) RED CELL DISTRIBUTION WIDTH SD (test code = 44.6 fL 37.0 -54.0 RDW-SD) PLATELET COUNT (test code = PLT) 287 x10 3/uL 150-400 MEAN PLATELET VOLUME (test code = MPV) 10.5 fL 7.0-9.0 NEUTROPHIL % (test code = NT%) 81.6 % 56.0-77.0 IMMATURE GRANULOCYTE % (test code = IG%) 1.2 % 0.0-2.0 LYMPHOCYTE % (test code = LY%) 9.2 % 14.0-32.0 MONOCYTE % (test code = MO%) 4.6 % 4.8-9.0 EOSINOPHIL % (test code = EO%) 3.0 % 0.3-3.7 BASOPHIL % (test code = BA%) 0.4 % 0.0-2.0 NUCLEATED RBC % (test code = NRBC%) 0.0 % 0-0 NEUTROPHIL # (test code = NT#) 16.00 x10 3/uL 2.0-7.6 IMMATURE GRANULOCYTE # (test code = IG#) 0.23 x10 3/uL 0.00-0. 03 LYMPHOCYTE # (test code = LY#) 1.80 x10 3/uL 1.0-3.8 MONOCYTE # (test code = MO#) 0.90 x10 3/uL 0.1-0.8 EOSINOPHIL # (test code = EO#) 0.59 x10 3/uL 0.0-0.2 BASOPHIL # (test code = BA#) 0.07 x10 3/uL 0.0-0.2 NUCLEATED RBC # (test code = NRBC#) 0.00 x10 3/uL 0.0-0.1 MANUAL DIFF REQUIRED (test code = MDIFF) [id number] 00:11:00 Test Item Value Reference Range Comments GLUBED (test code = GLUBED) 118 MG/DL 70-110 Perf ormed by certified cocoa powder mixer operator at [facility] [id number] 17:44:00 Test Item Value Reference Range Comments GLUBED (test code = GLUBED) 105 MG/DL 70-110 Perf ormed by certified cocoa powder mixer operator at [facility] HGB [id number] 15:03:00 Test Item Value Reference Range Comments HEMOGLOBIN (test code = HGB) 11.4 g/dL 11.0-15.0 HEMATOCRIT (test code = HCT) 35.2 % 33.0-45.0 [id number] 11:49:00 Test Item Value Reference Range Comments GLUBED (test code = GLUBED) 113 MG/DL 70-110 Perf ormed by certified cocoa powder mixer operator at [facility] BASIC METABOLIC [id number] 10:08:00 Test Item Value Reference Range Comments SODIUM (test code = NA) 137 mEq/L 134-147 POTASSIUM (test code = K) 2.7 mEq/L 3.4-5.0 CHLORIDE (test code = CL) 98 mEq/L 100-108 CARBON DIOXIDE (test code = 34 mEq/L 21-33 CO2) ANION GAP (test code = GAP) 8 0-20 GLUCOSE (test code = GLU) 127 mg/dL 70-110 BLOOD UREA NITROGEN (test code 27 mg/dL 7-18 = BUN) GLOMERULAR FILTRATION RATE 101.6 80-90 Units of measure = (test code = GFR) ml/min/1.73 m2 CREATININE (test code = CREAT) 0.6 mg/dL 0.6-1.3 CALCIUM (test code = CA) 8.4 mg/dL 8.0-10.5 COMMENTS: REPEAT LABS THIS [id number] 10:08:00 Test Item Value Reference Range Comments PHOSPHOROUS (test code = PHOS) 3.0 mg/dL 2.5-4.9 COMMENTS: REPEAT LABS THIS [id number] 10:08:00 Test Item Value Reference Range Comments MAGNESIUM (test code = MAG) 2.10 mg/dL 1.8-2.4 COMMENTS: REPEAT LABS THIS [id number] 08:35:00 Test Item Value Reference Range Comments GLUBED (test code = GLUBED) 100 MG/DL 70-110 Perf ormed by certified cocoa powder mixer operator at [facility] COMPREHENSIVE METABOLIC [id number] 07:26:00 Test Item Value Reference Range Comments SODIUM (test code = NA) 127 mEq/L 134-147 POTASSIUM (test code = K) 5.8 mEq/L 3.4-5.0 CHLORIDE (test code = CL) 88 mEq/L 100-108 CARBON DIOXIDE (test code = 29 mEq/L 21-33 CO2) ANION GAP (test code = GAP) 16 0-20 GLUCOSE (test code = GLU) 1328 mg/dL 70-110 BLOOD UREA NITROGEN (test code 27 mg/dL 7-18 = BUN) GLOMERULAR FILTRATION RATE 50.5 80-90 Units of measure = (test code = GFR) ml/min/1.73 m2 CREATININE (test code = CREAT) 1.1 mg/dL 0.6-1.3 TOTAL PROTEIN (test code = 5.3 g/dL 6.4-8.2 PROT) ALBUMIN (test code = ALB) 1.90 g/dL 3.4-5.0 CALCIUM (test code = CA) 8.8 mg/dL 8.0-10.5 BILIRUBIN TOTAL (test code = 0.60 mg/dL 0.0-1.0 BILT) SGOT/AST (test code = AST) 19 IUnit/L 15-37 SGPT/ALT (test code = ALT) 27 IUnit/L 15-65 ALKALINE PHOSPHATASE TOTAL 109 IUnit/L 20-125 (test code = ALKP) [id number] 07:26:00 Test Item Value Reference Range Comments PHOSPHOROUS (test code = PHOS) 8.8 mg/dL 2.5-4.9 [id number] 07:26:00 Test Item Value Reference Range Comments TRIGLYCERIDES (test code = TRIG) 181 mg/dL 40-150 [id number] 07:26:00 Test Item Value Reference Range Comments MAGNESIUM (test code = MAG) 3.10 mg/dL 1.8-2.4 [id number] 07:26:00 Test Item Value Reference Range Comments PREALBUMIN (test code = PREALB) 15.7 mg/dL 16.0-40.0 PROTHROMBIN [id number] 06:17:00 Test Item Value Reference Range Comments PROTHROMBIN TIME PATIENT 17.1 SECONDS 9.3-12.9 (test code = PTP) INTERNATIONAL NORMAL RATIO 1.5 0.8-1.2 [facility] INR BY (test code = INR) INDICATION I ndication INR1. Prophylax is of venous thrombosis 2.0 - 3.0 (orthopedi c surgery), Prophylaxis of venous thrombosis (othe r than high-risk surg yumiko), Treatment of Melonie p Vein Thrombosis/Pulmo nary Embolism, Preven tion of systemic embolis m - Tissue heart valves, Acute Myocardial Infar ction (to prevent system ic embolism), Valvular heart d isease, Atrial Fibrillat ion, Bileaflet mechan ical valve in aortic positi on.2. Mechanical prost hetic valves (high risk), 2.5 - 3.5 Presence of Lupu s Anticoagulant or Antiphospholipid Antibodies, Prevention of systemic embolism - Acute Myocardial Infarction (to prevent recurrent infarc t). CBC W/AUTO [id number] 06:13:00 Test Item Value Reference Range Comments WHITE BLOOD CELL (test code = WBC) 15.49 x10 3/uL 4.5-11.0 RED BLOOD CELL (test code = RBC) 3.23 x10 6/uL 3.54-5.02 HEMOGLOBIN (test code = HGB) 9.8 g/dL 11.0-15.0 HEMATOCRIT (test code = HCT) 33.5 % 33.0-45.0 MEAN CELL VOLUME (test code = MCV) 103.7 fL 81.0-99.0 MEAN CELL HGB (test code = MCH) 30.3 pg 27.0-33.0 MEAN CELL HGB CONCETRATION (test code = MCHC) 29.3 g/dL 33 .0-37.0 RED CELL DISTRIBUTION WIDTH CV (test code = 13.7 % 11.5 -14.5 RDW) RED CELL DISTRIBUTION WIDTH SD (test code = 52.5 fL 37.0 -54.0 RDW-SD) PLATELET COUNT (test code = PLT) 274 x10 3/uL 150-400 MEAN PLATELET VOLUME (test code = MPV) 10.9 fL 7.0-9.0 NEUTROPHIL % (test code = NT%) 74.4 % 56.0-77.0 IMMATURE GRANULOCYTE % (test code = IG%) 1.2 % 0.0-2.0 LYMPHOCYTE % (test code = LY%) 16.4 % 14.0-32.0 MONOCYTE % (test code = MO%) 5.4 % 4.8-9.0 EOSINOPHIL % (test code = EO%) 2.3 % 0.3-3.7 BASOPHIL % (test code = BA%) 0.3 % 0.0-2.0 NUCLEATED RBC % (test code = NRBC%) 0.0 % 0-0 NEUTROPHIL # (test code = NT#) 11.51 x10 3/uL 2.0-7.6 IMMATURE GRANULOCYTE # (test code = IG#) 0.19 x10 3/uL 0.00-0. 03 LYMPHOCYTE # (test code = LY#) 2.54 x10 3/uL 1.0-3.8 MONOCYTE # (test code = MO#) 0.84 x10 3/uL 0.1-0.8 EOSINOPHIL # (test code = EO#) 0.36 x10 3/uL 0.0-0.2 BASOPHIL # (test code = BA#) 0.05 x10 3/uL 0.0-0.2 NUCLEATED RBC # (test code = NRBC#) 0.00 x10 3/uL 0.0-0.1 MANUAL DIFF REQUIRED (test code = MDIFF) NO [id number] 01:47:00 Test Item Value Reference Range Comments GLUBED (test code = GLUBED) 142 MG/DL 70-110 Perf ormed by certified cocoa powder mixer operator at [facility] [id number] 12:29:00 Test Item Value Reference Range Comments GLUBED (test code = GLUBED) 101 MG/DL 70-110 Perf ormed by certified cocoa powder mixer operator at [facility] CBC W/AUTO [id number] 09:34:00 Test Item Value Reference Range Comments WHITE BLOOD CELL (test code 22.30 x10 3/uL 4.5-11.0 = WBC) RED BLOOD CELL (test code = 3.91 x10 6/uL 3.54-5.02 RBC) HEMOGLOBIN (test code = HGB) 11.9 g/dL 11.0-15.0 HEMATOCRIT (test code = HCT) 36.7 % 33.0-45.0 MEAN CELL VOLUME (test code 93.9 fL 81.0-99.0 = MCV) MEAN CELL HGB (test code = 30.4 pg 27.0-33.0 MCH) MEAN CELL HGB CONCETRATION 32.4 g/dL 33.0-37.0 (test code = MCHC) RED CELL DISTRIBUTION WIDTH 13.3 % 11.5-14.5 CV (test code = RDW) RED CELL DISTRIBUTION WIDTH 45.5 fL 37.0-54.0 SD (test code = RDW-SD) PLATELET COUNT (test code = 343 x10 3/uL 150-400 PLT) MEAN PLATELET VOLUME (test 10.2 fL 7.0-9.0 code = MPV) NEUTROPHIL % (test code = 77.6 % 56.0-77.0 NT%) IMMATURE GRANULOCYTE % (test 2.8 % 0.0-2.0 code = IG%) LYMPHOCYTE % (test code = 12.2 % 14.0-32.0 LY%) MONOCYTE % (test code = MO%) 5.0 % 4.8-9.0 EOSINOPHIL % (test code = 1.8 % 0.3-3.7 EO%) BASOPHIL % (test code = BA%) 0.6 % 0.0-2.0 NUCLEATED RBC % (test code = 0.0 % 0-0 NRBC%) NEUTROPHIL # (test code = 17.32 x10 3/uL 2.0-7.6 NT#) IMMATURE GRANULOCYTE # (test 0.63 x10 3/uL 0.00-0.03 code = IG#) LYMPHOCYTE # (test code = 2.71 x10 3/uL 1.0-3.8 LY#) MONOCYTE # (test code = MO#) 1.11 x10 3/uL 0.1-0.8 EOSINOPHIL # (test code = 0.40 x10 3/uL 0.0-0.2 EO#) BASOPHIL # (test code = BA#) 0.13 x10 3/uL 0.0-0.2 NUCLEATED RBC # (test code = 0.00 x10 3/uL 0.0-0.1 NRBC#) MANUAL DIFF REQUIRED (test NO SLIDE REVIEWED, CONSISTENT code = MDIFF) WITH AUTO DIFF. BASIC METABOLIC [id number] 07:40:00 Test Item Value Reference Range Comments SODIUM (test code = NA) 141 mEq/L 134-147 POTASSIUM (test code = K) 3.5 mEq/L 3.4-5.0 CHLORIDE (test code = CL) 102 mEq/L 100-108 CARBON DIOXIDE (test code = 36 mEq/L 21-33 CO2) ANION GAP (test code = GAP) 7 0-20 GLUCOSE (test code = GLU) 101 mg/dL 70-110 BLOOD UREA NITROGEN (test code 24 mg/dL 7-18 = BUN) GLOMERULAR FILTRATION RATE 85.1 80-90 Units of measure = (test code = GFR) ml/min/1.73 m2 CREATININE (test code = CREAT) 0.7 mg/dL 0.6-1.3 CALCIUM (test code = CA) 9.0 mg/dL 8.0-10.5 [id number] 07:40:00 Test Item Value Reference Range Comments PHOSPHOROUS (test code = PHOS) 3.6 mg/dL 2.5-4.9 [id number] 07:40:00 Test Item Value Reference Range Comments MAGNESIUM (test code = MAG) 2.40 mg/dL 1.8-2.4 CBC W/AUTO [id number] 06:15:00 Test Item Value Reference Range Comments WHITE BLOOD CELL (test code = WBC) 22.30 x10 3/uL 4.5-11.0 RED BLOOD CELL (test code = RBC) 3.91 x10 6/uL 3.54-5.02 HEMOGLOBIN (test code = HGB) 11.9 g/dL 11.0-15.0 HEMATOCRIT (test code = HCT) 36.7 % 33.0-45.0 MEAN CELL VOLUME (test code = MCV) 93.9 fL 81.0-99.0 MEAN CELL HGB (test code = MCH) 30.4 pg 27.0-33.0 MEAN CELL HGB CONCETRATION (test code = MCHC) 32.4 g/dL 33 .0-37.0 RED CELL DISTRIBUTION WIDTH CV (test code = 13.3 % 11.5 -14.5 RDW) RED CELL DISTRIBUTION WIDTH SD (test code = 45.5 fL 37.0 -54.0 RDW-SD) PLATELET COUNT (test code = PLT) 343 x10 3/uL 150-400 MEAN PLATELET VOLUME (test code = MPV) 10.2 fL 7.0-9.0 LYMPHOCYTE % (test code = LY%) % 14.0-32.0 MANUAL DIFF REQUIRED (test code = MDIFF) [id number] 06:08:00 Test Item Value Reference Range Comments GLUBED (test code = GLUBED) 100 MG/DL 70-110 Perf ormed by certified cocoa powder mixer operator at [facility] [id number] 06:06:00 Test Item Value Reference Range Comments GLUBED (test code = GLUBED) 108 MG/DL 70-110 Perf ormed by certified cocoa powder mixer operator at [facility] [id number] 23:45:00 Test Item Value Reference Range Comments GLUBED (test code = GLUBED) 72 MG/DL 70-110 Perf ormed by certified cocoa powder mixer operator at [facility] [id number] 20:45:00 Test Item Value Reference Range Comments GLUBED (test code = GLUBED) 102 MG/DL 70-110 Perf ormed by certified cocoa powder mixer operator at [facility] [id number] 20:45:00 Test Item Value Reference Range Comments GLUBED (test code = GLUBED) 98 MG/DL 70-110 Perf ormed by certified cocoa powder mixer operator at [facility] - CT ABD PELVIS W WO [id number] 14:40:00 Name: NENA HERNANDEZ [facility] : 1955 Age/S: 63 / F [address] [place] [address] Unit #: [id number] Loc: Andrew [id number] Phys: Stef Connelly MD Acct: [id number] Dis Date: Status: ADM IN PHONE #: [phone] Exam Date: 04/19/2019 1105 FAX #: [phone] Reason: ABD PAIN EXAMS: CPTCODE: [id number] CT ABD PELVIS [place] CONT [id number] CT SCAN OF THE ABDOMEN AND PELVIS WITH AND WITHOUT CONTRAST: HISTORY: Recent abdominal surgery. Persistent abdominal pain. COMPARISON EXAMS: Previous exams of the chest and abdomen from 04/13/2019. TECHNIQUE: Axial images were obtained of the abdomen and pelvis from the domes of the diaphragm to the symphysis pubis before contrast material and followingintravenous injection of 100 mL [id number]. 2-D sagittal and coronal reconstructions were generated. DOSE: CT imaging performed at this location utilizes radiation dose optimization technique which includes one or more of the followin) Automated exposure control; 2) Adjustment of the mA and/or kV according to patient's size; 3) Use of iterative reconstruction techniques. DLP (mGy- cm): 1800 FINDINGS: Precontrast images show bibasilar inf iltrate/atelectasis with small volume pleural effusions. No evidence of retroperitonealhemorrhage or hemoperitoneum. Mild distention of the transverse colon. Flank edema is noted bilaterally. Postcontrast images show no focal lesions in the liver, spleen, pancreas, adrenal glands, or kidneys. No evidence of urolithiasis or hydronephrosis.The gallbladder is of normal size. Minimal high density is noted in the dependent portion of the gallbladder, likely secondary to vicarious excretion of contrast from the prior exam. Percutaneous surgical drains are identified in the anterior abdomen and subhepatic space. No evidence of extraluminal fluid collections, ascites, or free peritoneal air. No evidence of bowel dilatation. The left colon is evacuated and completely collapsed. The right colon contains fecal material and residual contrast material from the prior exam. A Perry bulb is identified within the urinary bladder. No pelvic masses or adenopathy. No retroperitoneal adenopathy. Minimal herniation of fat through the anterior abdominal wall. IMPRESSION: 1. Postsurgical changes since 04/13/2019 with anterior surgical drains in place. PAGE 1 Signed Report (CONTINUED) Name: NENA HERNANDEZ [place] [facility] : 1955 Age/S: 63/ F [address] [place], [place] [address]vd Unit #: [id number] Loc: [place] [address] Phys: Stef Connelly MD Acct: [id number] Dis Date: Status: ADM IN PHONE #: [phone] Exam Date: 04/19/2019 1105 FAX #: [phone] Reason: ABD PAIN EXAMS: CPT CODE: [id number] CT ABD PELVIS W WO CONT [id number] <Continued> 2. No evidence of abdominal or pelvic abscess, free air or free fluid. 3. Several small fat herniations are identified through the anterior abdominal midline. 4. Bilateral flank edema. 5. Bibasilar infiltrate/atelectasis. Pneumonia is possible. 6. Small layering bilateral pleural effusions. 7. Gastric tube identified within the gastric lumen. 8. No evidence of bowel obstruction. SL:01 at 1440 Reported and signed by: Alvarez Capps M.D. CC: Pancho Luu MD; Stef Connelly MD; Allison Calvo MD Technologist:Tiffanie Daly, RT(R)(CT) CTDI: DLP: Trnscb Date/Time: 04/19/2019 (1440) [email or web address] Orig Print D/T: S: 04/19/2019 (6950) PAGE 2 Signed [id number] 13:01:00 Test Item Value Reference Range Comments PHOSPHOROUS (test code = PHOS) 6.8 mg/dL 2.5-4.9 [id number] 13:01:00 Test Item Value Reference Range Comments MAGNESIUM (test code = MAG) 2.60 mg/dL 1.8-2.4 [id number] 12:26:00 Test Item Value Reference Range Comments GLUBED (test code = GLUBED) 106 MG/DL 70-110 Perf ormed by certified cocoa powder mixer operator at [facility] BASIC METABOLIC [id number] 10:31:00 Test Item Value Reference Range Comments SODIUM (test code = NA) 130 mEq/L 134-147 POTASSIUM (test code = K) 5.2 mEq/L 3.4-5.0 CHLORIDE (test code = CL) 92 mEq/L 100-108 CARBON DIOXIDE (test code = 29 mEq/L 21-33 CO2) ANION GAP (test code = GAP) 14 0-20 GLUCOSE (test code = GLU) 972 mg/dL 70-110 BLOOD UREA NITROGEN (test code 21 mg/dL 7-18 = BUN) GLOMERULAR FILTRATION RATE 63.7 80-90 Units of measure = (test code = GFR) ml/min/1.73 m2 CREATININE (test code = CREAT) 0.9 mg/dL 0.6-1.3 CALCIUM (test code = CA) 8.6 mg/dL 8.0-10.5 CBC W/AUTO [id number] 09:57:00 Test Item Value Reference Range Comments WHITE BLOOD CELL (test code 19.81 x10 3/uL 4.5-11.0 = WBC) RED BLOOD CELL (test code = 3.50 x10 6/uL 3.54-5.02 RBC) HEMOGLOBIN (test code = HGB) 10.7 g/dL 11.0-15.0 HEMATOCRIT (test code = HCT) 36.7 % 33.0-45.0 MEAN CELL VOLUME (test code 104.9 fL 81.0-99.0 = MCV) MEAN CELL HGB (test code = 30.6 pg 27.0-33.0 MCH) MEAN CELL HGB CONCETRATION 29.2 g/dL 33.0-37.0 (test code = MCHC) RED CELL DISTRIBUTION WIDTH 14.4 % 11.5-14.5 CV (test code = RDW) RED CELL DISTRIBUTION WIDTH 55.9 fL 37.0-54.0 SD (test code = RDW-SD) PLATELET COUNT (test code = 289 x10 3/uL 150-400 PLT) MEAN PLATELET VOLUME (test 9.9 fL 7.0-9.0 code = MPV) NEUTROPHIL % (test code = 77.2 % 56.0-77.0 NT%) IMMATURE GRANULOCYTE % (test 3.1 % 0.0-2.0 code = IG%) LYMPHOCYTE % (test code = 11.6 % 14.0-32.0 LY%) MONOCYTE % (test code = MO%) 5.6 % 4.8-9.0 EOSINOPHIL % (test code = 2.0 % 0.3-3.7 EO%) BASOPHIL % (test code = BA%) 0.5 % 0.0-2.0 NUCLEATED RBC % (test code = 0.0 % 0-0 NRBC%) NEUTROPHIL # (test code = 15.30 x10 3/uL 2.0-7.6 NT#) IMMATURE GRANULOCYTE # (test 0.61 x10 3/uL 0.00-0.03 code = IG#) LYMPHOCYTE # (test code = 2.30 x10 3/uL 1.0-3.8 LY#) MONOCYTE # (test code = MO#) 1.11 x10 3/uL 0.1-0.8 EOSINOPHIL # (test code = 0.40 x10 3/uL 0.0-0.2 EO#) BASOPHIL # (test code = BA#) 0.09 x10 3/uL 0.0-0.2 NUCLEATED RBC # (test code = 0.00 x10 3/uL 0.0-0.1 NRBC#) MANUAL DIFF REQUIRED (test NO SLIDE REVIEWED, CONSISTENT code = MDIFF) WITH AUTO DIFF. CBC W/AUTO [id number] 09:34:00 Test Item Value Reference Range Comments WHITE BLOOD CELL (test code = WBC) 19.81 x10 3/uL 4.5-11.0 RED BLOOD CELL (test code = RBC) 3.50 x10 6/uL 3.54-5.02 HEMOGLOBIN (test code = HGB) 10.7 g/dL 11.0-15.0 HEMATOCRIT (test code = HCT) 36.7 % 33.0-45.0 MEAN CELL VOLUME (test code = MCV) 104.9 fL 81.0-99.0 MEAN CELL HGB (test code = MCH) 30.6 pg 27.0-33.0 MEAN CELL HGB CONCETRATION (test code = MCHC) 29.2 g/dL 33 .0-37.0 RED CELL DISTRIBUTION WIDTH CV (test code = 14.4 % 11.5 -14.5 RDW) RED CELL DISTRIBUTION WIDTH SD (test code = 55.9 fL 37.0 -54.0 RDW-SD) PLATELET COUNT (test code = PLT) 289 x10 3/uL 150-400 MEAN PLATELET VOLUME (test code = MPV) 9.9 fL 7.0-9.0 LYMPHOCYTE % (test code = LY%) % 14.0-32.0 MANUAL DIFF REQUIRED (test code = MDIFF) CBC W/AUTO [id number] 05:53:00 Test Item Value Reference Range Comments WHITE BLOOD CELL (test code 19.24 x10 3/uL 4.5-11.0 = WBC) RED BLOOD CELL (test code = 3.87 x10 6/uL 3.54-5.02 RBC) HEMOGLOBIN (test code = HGB) 11.7 g/dL 11.0-15.0 HEMATOCRIT (test code = HCT) 36.7 % 33.0-45.0 MEAN CELL VOLUME (test code 94.8 fL 81.0-99.0 = MCV) MEAN CELL HGB (test code = 30.2 pg 27.0-33.0 MCH) MEAN CELL HGB CONCETRATION 31.9 g/dL 33.0-37.0 (test code = MCHC) RED CELL DISTRIBUTION WIDTH 13.9 % 11.5-14.5 CV (test code = RDW) RED CELL DISTRIBUTION WIDTH 48.6 fL 37.0-54.0 SD (test code = RDW-SD) PLATELET COUNT (test code = 305 x10 3/uL 150-400 PLT) MEAN PLATELET VOLUME (test 9.9 fL 7.0-9.0 code = MPV) NEUTROPHIL % (test code = 74.0 % 56.0-77.0 NT%) IMMATURE GRANULOCYTE % (test 3.5 % 0.0-2.0 code = IG%) LYMPHOCYTE % (test code = 13.5 % 14.0-32.0 LY%) MONOCYTE % (test code = MO%) 6.3 % 4.8-9.0 EOSINOPHIL % (test code = 2.2 % 0.3-3.7 EO%) BASOPHIL % (test code = BA%) 0.5 % 0.0-2.0 NUCLEATED RBC % (test code = 0.1 % 0-0 NRBC%) NEUTROPHIL # (test code = 14.24 x10 3/uL 2.0-7.6 NT#) IMMATURE GRANULOCYTE # (test 0.67 x10 3/uL 0.00-0.03 code = IG#) LYMPHOCYTE # (test code = 2.60 x10 3/uL 1.0-3.8 LY#) MONOCYTE # (test code = MO#) 1.21 x10 3/uL 0.1-0.8 EOSINOPHIL # (test code = 0.42 x10 3/uL 0.0-0.2 EO#) BASOPHIL # (test code = BA#) 0.10 x10 3/uL 0.0-0.2 NUCLEATED RBC # (test code = 0.02 x10 3/uL 0.0-0.1 NRBC#) MANUAL DIFF REQUIRED (test NO SLIDE REVIEWED, CONSISTENT code = MDIFF) WITH AUTO DIFF. [id number] 05:46:00 Test Item Value Reference Range Comments GLUBED (test code = GLUBED) 113 MG/DL 70-110 Perf ormed by certified cocoa powder mixer operator at [facility] CBC W/AUTO [id number] 05:31:00 Test Item Value Reference Range Comments WHITE BLOOD CELL (test code = WBC) 19.24 x10 3/uL 4.5-11.0 RED BLOOD CELL (test code = RBC) 3.87 x10 6/uL 3.54-5.02 HEMOGLOBIN (test code = HGB) 11.7 g/dL 11.0-15.0 HEMATOCRIT (test code = HCT) 36.7 % 33.0-45.0 MEAN CELL VOLUME (test code = MCV) 94.8 fL 81.0-99.0 MEAN CELL HGB (test code = MCH) 30.2 pg 27.0-33.0 MEAN CELL HGB CONCETRATION (test code = MCHC) 31.9 g/dL 33 .0-37.0 RED CELL DISTRIBUTION WIDTH CV (test code = 13.9 % 11.5 -14.5 RDW) RED CELL DISTRIBUTION WIDTH SD (test code = 48.6 fL 37.0 -54.0 RDW-SD) PLATELET COUNT (test code = PLT) 305 x10 3/uL 150-400 MEAN PLATELET VOLUME (test code = MPV) 9.9 fL 7.0-9.0 LYMPHOCYTE % (test code = LY%) % 14.0-32.0 MANUAL DIFF REQUIRED (test code = MDIFF) BASIC METABOLIC [id number] 05:08:00 Test Item Value Reference Range Comments SODIUM (test code = NA) 131 mEq/L 134-147 POTASSIUM (test code = K) 5.2 mEq/L 3.4-5.0 CHLORIDE (test code = CL) 94 mEq/L 100-108 CARBON DIOXIDE (test code = 29 mEq/L 21-33 CO2) ANION GAP (test code = GAP) 13 0-20 GLUCOSE (test code = GLU) 866 mg/dL 70-110 BLOOD UREA NITROGEN (test code 21 mg/dL 7-18 = BUN) GLOMERULAR FILTRATION RATE 72.9 80-90 Units of measure = (test code = GFR) ml/min/1.73 m2 CREATININE (test code = CREAT) 0.8 mg/dL 0.6-1.3 CALCIUM (test code = CA) 8.7 mg/dL 8.0-10.5 [id number] 05:08:00 Test Item Value Reference Range Comments PHOSPHOROUS (test code = PHOS) 6.5 mg/dL 2.5-4.9 [id number] 05:08:00 Test Item Value Reference Range Comments MAGNESIUM (test code = MAG) 2.60 mg/dL 1.8-2.4 [id number] 23:51:00 Test Item Value Reference Range Comments GLUBED (test code = GLUBED) 116 MG/DL 70-110 Perf ormed by certified cocoa powder mixer operator at [facility] CBC W/AUTO [id number] 10:38:00 Test Item Value Reference Range Comments WHITE BLOOD CELL (test code 17.28 x10 3/uL 4.5-11.0 = WBC) RED BLOOD CELL (test code = 3.01 x10 6/uL 3.54-5.02 RBC) HEMOGLOBIN (test code = HGB) 9.4 g/dL 11.0-15.0 HEMATOCRIT (test code = HCT) 28.7 % 33.0-45.0 MEAN CELL VOLUME (test code 95.3 fL 81.0-99.0 = MCV) MEAN CELL HGB (test code = 31.2 pg 27.0-33.0 MCH) MEAN CELL HGB CONCETRATION 32.8 g/dL 33.0-37.0 (test code = MCHC) RED CELL DISTRIBUTION WIDTH 14.4 % 11.5-14.5 CV (test code = RDW) RED CELL DISTRIBUTION WIDTH 49.3 fL 37.0-54.0 SD (test code = RDW-SD) PLATELET COUNT (test code = 315 x10 3/uL 150-400 PLT) MEAN PLATELET VOLUME (test 10.4 fL 7.0-9.0 code = MPV) NEUTROPHIL % (test code = 72.5 % 56.0-77.0 NT%) IMMATURE GRANULOCYTE % (test 4.7 % 0.0-2.0 code = IG%) LYMPHOCYTE % (test code = 15.0 % 14.0-32.0 LY%) MONOCYTE % (test code = MO%) 7.0 % 4.8-9.0 EOSINOPHIL % (test code = 0.6 % 0.3-3.7 EO%) BASOPHIL % (test code = BA%) 0.2 % 0.0-2.0 NUCLEATED RBC % (test code = 0.0 % 0-0 NRBC%) NEUTROPHIL # (test code = 12.51 x10 3/uL 2.0-7.6 NT#) IMMATURE GRANULOCYTE # (test 0.82 x10 3/uL 0.00-0.03 code = IG#) LYMPHOCYTE # (test code = 2.60 x10 3/uL 1.0-3.8 LY#) MONOCYTE # (test code = MO#) 1.21 x10 3/uL 0.1-0.8 EOSINOPHIL # (test code = 0.10 x10 3/uL 0.0-0.2 EO#) BASOPHIL # (test code = BA#) 0.04 x10 3/uL 0.0-0.2 NUCLEATED RBC # (test code = 0.00 x10 3/uL 0.0-0.1 NRBC#) MANUAL DIFF REQUIRED (test NO SLIDE REVIEWED, CONSISTENT code = MDIFF) WITH AUTO DIFF. [id number] 08:51:00 Test Item Value Reference Range Comments GLUBED (test code = GLUBED) 97 MG/DL 70-110 Perf ormed by certified cocoa powder mixer operator at [facility] COMPREHENSIVE METABOLIC [id number] 06:14:00 Test Item Value Reference Range Comments SODIUM (test code = NA) 141 mEq/L 134-147 POTASSIUM (test code = K) 3.9 mEq/L 3.4-5.0 CHLORIDE (test code = CL) 104 mEq/L 100-108 CARBON DIOXIDE (test code = 31 mEq/L 21-33 CO2) ANION GAP (test code = GAP) 10 0-20 GLUCOSE (test code = GLU) 122 mg/dL 70-110 BLOOD UREA NITROGEN (test code 34 mg/dL 7-18 = BUN) GLOMERULAR FILTRATION RATE 63.7 80-90 Units of measure = (test code = GFR) ml/min/1.73 m2 CREATININE (test code = CREAT) 0.9 mg/dL 0.6-1.3 TOTAL PROTEIN (test code = 6.5 g/dL 6.4-8.2 PROT) ALBUMIN (test code = ALB) 2.10 g/dL 3.4-5.0 CALCIUM (test code = CA) 8.9 mg/dL 8.0-10.5 BILIRUBIN TOTAL (test code = 0.70 mg/dL 0.0-1.0 BILT) SGOT/AST (test code = AST) 37 IUnit/L 15-37 SGPT/ALT (test code = ALT) 30 IUnit/L 15-65 ALKALINE PHOSPHATASE TOTAL 121 IUnit/L 20-125 (test code = ALKP) [id number] 06:14:00 Test Item Value Reference Range Comments PHOSPHOROUS (test code = PHOS) 2.8 mg/dL 2.5-4.9 [id number] 06:14:00 Test Item Value Reference Range Comments MAGNESIUM (test code = MAG) 2.20 mg/dL 1.8-2.4 CBC W/AUTO [id number] 05:56:00 Test Item Value Reference Range Comments WHITE BLOOD CELL (test code = WBC) 17.28 x10 3/uL 4.5-11.0 RED BLOOD CELL (test code = RBC) 3.01 x10 6/uL 3.54-5.02 HEMOGLOBIN (test code = HGB) 9.4 g/dL 11.0-15.0 HEMATOCRIT (test code = HCT) 28.7 % 33.0-45.0 MEAN CELL VOLUME (test code = MCV) 95.3 fL 81.0-99.0 MEAN CELL HGB (test code = MCH) 31.2 pg 27.0-33.0 MEAN CELL HGB CONCETRATION (test code = MCHC) 32.8 g/dL 33 .0-37.0 RED CELL DISTRIBUTION WIDTH CV (test code = 14.4 % 11.5 -14.5 RDW) RED CELL DISTRIBUTION WIDTH SD (test code = 49.3 fL 37.0 -54.0 RDW-SD) PLATELET COUNT (test code = PLT) 315 x10 3/uL 150-400 MEAN PLATELET VOLUME (test code = MPV) 10.4 fL 7.0-9.0 LYMPHOCYTE % (test code = LY%) % 14.0-32.0 MANUAL DIFF REQUIRED (test code = MDIFF) [id number] 05:48:00 Test Item Value Reference Range Comments GLUBED (test code = GLUBED) 127 MG/DL 70-110 Perf ormed by certified cocoa powder mixer operator at [facility] [id number] 23:23:00 Test Item Value Reference Range Comments TROPONIN-I (test < 0.015 ng/mL 0.000-0.045 Negative: <= 0.045 code = TROPI) Positive: >= 0.046 Correlation with serial results, other cardiac ma rkers andclinical findings is nece ssary to determine the clinicalsign ificance of this result. Results using different methodologies sh ould not be comparedto one a nother as quantitative res ults may vary by method. [id number] 17:04:00 Test Item Value Reference Range Comments GLUBED (test code = GLUBED) 108 MG/DL 70-110 Perf ormed by certified cocoa powder mixer operator at [facility] [id number] 17:04:00 Test Item Value Reference Range Comments GLUBED (test code = GLUBED) 126 MG/DL 70-110 Perf ormed by certified cocoa powder mixer operator at [facility] CBC W/AUTO [id number] 13:49:00 Test Item Value Reference Range Comments WHITE BLOOD CELL (test code 19.67 x10 3/uL 4.5-11.0 = WBC) RED BLOOD CELL (test code = 3.54 x10 6/uL 3.54-5.02 RBC) HEMOGLOBIN (test code = HGB) 10.9 g/dL 11.0-15.0 HEMATOCRIT (test code = HCT) 33.3 % 33.0-45.0 MEAN CELL VOLUME (test code 94.1 fL 81.0-99.0 = MCV) MEAN CELL HGB (test code = 30.8 pg 27.0-33.0 MCH) MEAN CELL HGB CONCETRATION 32.7 g/dL 33.0-37.0 (test code = MCHC) RED CELL DISTRIBUTION WIDTH 14.0 % 11.5-14.5 CV (test code = RDW) RED CELL DISTRIBUTION WIDTH 48.9 fL 37.0-54.0 SD (test code = RDW-SD) PLATELET COUNT (test code = 240 x10 3/uL 150-400 PLT) MEAN PLATELET VOLUME (test 10.1 fL 7.0-9.0 code = MPV) NEUTROPHIL % (test code = 83.0 % 56.0-77.0 NT%) IMMATURE GRANULOCYTE % (test 4.7 % 0.0-2.0 code = IG%) LYMPHOCYTE % (test code = 6.1 % 14.0-32.0 LY%) MONOCYTE % (test code = MO%) 5.8 % 4.8-9.0 EOSINOPHIL % (test code = 0.1 % 0.3-3.7 EO%) BASOPHIL % (test code = BA%) 0.3 % 0.0-2.0 NUCLEATED RBC % (test code = 0.0 % 0-0 NRBC%) NEUTROPHIL # (test code = 16.35 x10 3/uL 2.0-7.6 NT#) IMMATURE GRANULOCYTE # (test 0.92 x10 3/uL 0.00-0.03 code = IG#) LYMPHOCYTE # (test code = 1.20 x10 3/uL 1.0-3.8 LY#) MONOCYTE # (test code = MO#) 1.14 x10 3/uL 0.1-0.8 EOSINOPHIL # (test code = 0.01 x10 3/uL 0.0-0.2 EO#) BASOPHIL # (test code = BA#) 0.05 x10 3/uL 0.0-0.2 NUCLEATED RBC # (test code = 0.00 x10 3/uL 0.0-0.1 NRBC#) MANUAL DIFF REQUIRED (test NO SLIDE REVIEWED, CONSISTENT code = MDIFF) WITH AUTO DIFF. - XR SHOULDER 1 V [id number] 12:12:00 FAX: Pancho Luu MD [phone] [place]: St: [facility] FAX: Apurva Devi [phone] FAX: Allison Barajas [phone] Name: NENA HERNANDEZ [facility] [place]rie : 1955 Age/S: 63/F [address] Unit #: [id number] Loc: G.M302 [place] [address] Phys: Apurva Devi Acct: [id number] Dis Date: Status: ADM IN PHONE #: [phone] Exam Date: 04/17/2019 1157 FAX #: [phone] Reason: PICC PLACEMENT EXAMS: CPT CODE: [id number] XR SHOULDER [place] [address] RIGHT SHOULDER ONE VIEW 04/17/2019. HISTORY: Line placement. This single portable view shows placement of a PICC with the tip projecting over the superior vena cava. IMPRESSION: 1. Status post PICC placement. SL: [id number] at 1212 Reported and signed by: Frederick Miller M.D. CC: Pancho uLu MD; Chris ALFONSO; Allison Calvo MD Technologist: RT Sharee(R) Trnscrd Date/Time/By: 04/17/2019 (5572) : By: [email or web address] Orig Print D/T: S: 04/17/2019 (6557) PAGE 1 Signed ReportCBC W/AUTO DIFF 2019-04-17 11:45:00 Test Item Value Reference Range Comments WHITE BLOOD CELL (test code = WBC) 19.67 x10 3/uL 4.5-11.0 RED BLOOD CELL (test code = RBC) 3.54 x10 6/uL 3.54-5.02 HEMOGLOBIN (test code = HGB) 10.9 g/dL 11.0-15.0 HEMATOCRIT (test code = HCT) 33.3 % 33.0-45.0 MEAN CELL VOLUME (test code = MCV) 94.1 fL 81.0-99.0 MEAN CELL HGB (test code = MCH) 30.8 pg 27.0-33.0 MEAN CELL HGB CONCETRATION (test code = MCHC) 32.7 g/dL 33 .0-37.0 RED CELL DISTRIBUTION WIDTH CV (test code = 14.0 % 11.5 -14.5 RDW) RED CELL DISTRIBUTION WIDTH SD (test code = 48.9 fL 37.0 -54.0 RDW-SD) PLATELET COUNT (test code = PLT) 240 x10 3/uL 150-400 MEAN PLATELET VOLUME (test code = MPV) 10.1 fL 7.0-9.0 LYMPHOCYTE % (test code = LY%) % 14.0-32.0 MANUAL DIFF REQUIRED (test code = MDIFF) [id number] 11:08:00 Test Item Value Reference Range Comments GLUBED (test code = GLUBED) 113 MG/DL 70-110 Perf ormed by certified cocoa powder mixer operator at [facility] - XR CHEST 1 [id number] 09:03:00 FAX: Keren Perkins MD [phone] [place]: St: ADM FAX: Pancho Luu MD [phone] FAX: Allison Barajas [phone] Name: DAVIDNENA GEORGIA [facility] : 1955 Age/S: 63/F [address] [place] [address] Unit #: [id number] Loc: G.M302 [place] [address] Phys: Keren Dennis MD Acct: [id number] Dis Date: Status: ADM IN PHONE #: [phone] Exam Date: 04/17/2019520 FAX #: [phone] Reason: SOB EXAMS: CPT CODE: [id number] XR CHEST 1 V 65698 CHEST 1 VIEW, PORTABLE, 04/17/2019 : COMPARISON: April 16, 2019 CLINICAL HISTORY: SOB FINDINGS: There has been interval removal of the endotracheal tube. NG tube again noted with tip overlying the gastric body. The heart is stable in size. There are bilateral pulmonary opacities, most severe at the right lung base and left midlung. Findings the right lower lobe and left midlung have slightly worsened. No pneumothorax is seen. CONCLUSION: Bilateral pulmonary infiltrates as described. Findings have slightly worsened when compared with the prior study. at 0903 Reported and signed by: Doc Ndiaye M.D. CC: Keren Dennis MD; Pancho Luu MD; Allison Calvo MD Technologist: RT Michela(R) Trnscrd Date/Time/By: 04/17/2019 (902) : By: [email or web address] Orig Print D/T: S: 04/17/2019 (0907) PAGE 1 Signed ReportBASIC METABOLIC [id number] 07:23:00 Test Item Value Reference Range Comments SODIUM (test code = NA) 142 mEq/L 134-147 POTASSIUM (test code = K) 3.6 mEq/L 3.4-5.0 CHLORIDE (test code = CL) 107 mEq/L 100-108 CARBON DIOXIDE (test code = 29 mEq/L 21-33 CO2) ANION GAP (test code = GAP) 10 0-20 GLUCOSE (test code = GLU) 106 mg/dL 70-110 BLOOD UREA NITROGEN (test code 27 mg/dL 7-18 = BUN) GLOMERULAR FILTRATION RATE 63.7 80-90 Units of measure = (test code = GFR) ml/min/1.73 m2 CREATININE (test code = CREAT) 0.9 mg/dL 0.6-1.3 CALCIUM (test code = CA) 9.0 mg/dL 8.0-10.5 [id number] 07:23:00 Test Item Value Reference Range Comments PHOSPHOROUS (test code = PHOS) 3.7 mg/dL 2.5-4.9 [id number] 07:23:00 Test Item Value Reference Range Comments MAGNESIUM (test code = MAG) 2.10 mg/dL 1.8-2.4 [id number] 06:52:00 Test Item Value Reference Range Comments GLUBED (test code = GLUBED) 128 MG/DL 70-110 Perf ormed by certified cocoa powder mixer operator at [facility] [id number] 05:19:00 Test Item Value Reference Range Comments GLUBED (test code = GLUBED) 99 MG/DL 70-110 Perf ormed by certified cocoa powder mixer operator at [facility] [id number] 00:51:00 Test Item Value Reference Range Comments GLUBED (test code = GLUBED) 105 MG/DL 70-110 Perf ormed by certified cocoa powder mixer operator at [facility] [id number] 00:51:00 Test Item Value Reference Range Comments GLUBED (test code = GLUBED) 95 MG/DL 70-110 Perf ormed by certified cocoa powder mixer operator at [facility] [id number] 17:18:00 Test Item Value Reference Range Comments GLUBED (test code = GLUBED) 84 MG/DL 70-110 Perf ormed by certified cocoa powder mixer operator at [facility] [id number] 17:18:00 Test Item Value Reference Range Comments GLUBED (test code = GLUBED) 112 MG/DL 70-110 Perf ormed by certified cocoa powder mixer operator at [facility] [id number] 17:18:00 Test Item Value Reference Range Comments GLUBED (test code = GLUBED) 135 MG/DL 70-110 Perf ormed by certified cocoa powder mixer operator at [facility] CBC W/AUTO [id number] 11:32:00 Test Item Value Reference Range Comments WHITE BLOOD CELL (test code = 8.25 x10 3/uL 4.5-11.0 WBC) RED BLOOD CELL (test code = 3.06 x10 6/uL 3.54-5.02 RBC) HEMOGLOBIN (test code = HGB) 9.5 g/dL 11.0-15.0 HEMATOCRIT (test code = HCT) 28.7 % 33.0-45.0 MEAN CELL VOLUME (test code = 93.8 fL 81.0-99.0 MCV) MEAN CELL HGB (test code = 31.0 pg 27.0-33.0 MCH) MEAN CELL HGB CONCETRATION 33.1 g/dL 33.0-37.0 (test code = MCHC) RED CELL DISTRIBUTION WIDTH 13.4 % 11.5-14.5 CV (test code = RDW) RED CELL DISTRIBUTION WIDTH 46.5 fL 37.0-54.0 SD (test code = RDW-SD) PLATELET COUNT (test code = 122 x10 3/uL 150-400 PLT) MEAN PLATELET VOLUME (test 10.2 fL 7.0-9.0 code = MPV) NEUTROPHIL % (test code = 84.0 % 56.0-77.0 NT%) IMMATURE GRANULOCYTE % (test 1.8 % 0.0-2.0 code = IG%) LYMPHOCYTE % (test code = 8.2 % 14.0-32.0 LY%) MONOCYTE % (test code = MO%) 5.7 % 4.8-9.0 EOSINOPHIL % (test code = 0.1 % 0.3-3.7 EO%) BASOPHIL % (test code = BA%) 0.2 % 0.0-2.0 NUCLEATED RBC % (test code = 0.0 % 0-0 NRBC%) NEUTROPHIL # (test code = 6.92 x10 3/uL 2.0-7.6 NT#) IMMATURE GRANULOCYTE # (test 0.15 x10 3/uL 0.00-0.03 code = IG#) LYMPHOCYTE # (test code = 0.68 x10 3/uL 1.0-3.8 LY#) MONOCYTE # (test code = MO#) 0.47 x10 3/uL 0.1-0.8 EOSINOPHIL # (test code = 0.01 x10 3/uL 0.0-0.2 EO#) BASOPHIL # (test code = BA#) 0.02 x10 3/uL 0.0-0.2 NUCLEATED RBC # (test code = 0.00 x10 3/uL 0.0-0.1 NRBC#) MANUAL DIFF REQUIRED (test NO SLIDE REVIEWED, CONSISTENT code = MDIFF) WITH AUTO DIFF. ARTERIAL BLOOD [id number] 11:27:00 Test Item Value Reference Range Comments ARTERIAL BLOOD GAS PH (test 7.401 7.35-7.45 code = PHA) ARTERIAL BLOOD GAS PCO2 (test 41.5 mmHg 35-45 code = PCO2A) ARTERIAL BLOOD GAS PO2 (test 108 mmHg 80-100 code = PO2A) BICARBONATE TOTAL HCO3 (test 25.8 mmol/L 22.0-26.0 code = HCO3) BASE EXCESS (test code = KETTY) 1.0 mmol/L -4-4 ABG O2 SATURATION (test code = 98 % 90-100 SATA) FIO2 (test code = FIO2A) 40 % ABG DELIVERY (test code = Vent NICO) ABG VENT MODE (test code = PSV MODEA) ABG PEEP (test code = PEEPA) 5 cmH2O ABG PRESSURE SUPPORT (test 5 cmH2O Perfo rmed by certified code = PSABG) cocoa powder mixer operator at [facility] ABG TEMPERATURE (test code = 98.6 F TEMPA) ABG SITE (test code = SITEA) Art line PREDICTED AA GRADIENT (test 61 code = AP) PREDICTED PO2 (test code = OP) 174 a/A RATIO (test code = RATIO) 0.46 TCO2 ARTERIAL (test code = 27 TCO2A) A-A GRADIENT (test code = 127 AAGRADE) - XR CHEST 1 [id number] 08:29:00 FAX: Keren Perkins MD [phone] [place]: St: [facility] FAX: Pancho Luu MD [phone] FAX: Allison Barajas [phone] Name: NENA HERNANDEZ [facility] : 1955 Age/S: 63/F [address] [place] [address] Unit #: [id number] Loc: G.M302 [place] [address] Phys: Keren Dennis MD Acct: [id number] Dis Date: Status: ADM IN PHONE #: [phone] Exam Date: 04/16/2019 0517 FAX #: [phone] Reason: SOB EXAMS: CPT CODE: [id number] XR CHEST 1 V 16988 EXAM: CHEST SINGLE VIEW HISTORY: 63-year-old female with shortness of breath COMPARISON: Chest radiograph 04/15/2019 FINDINGS: Stable small right effusion with associated right basilar atelectasis/consolidation. Mild increased density in the right upper lung. Streaky opacities in the left mid and lower lung, stable to slightly increased. The cardiomediastinal silhouette is stable. Osseous structures are unchanged. Stable position of endotracheal tube and nasogastric tube. IMPRESSION: 1. Stable small right effusion with associated right basilar atelectasis/consolidation. Mildly increased density in the right upper lung. 2. Streaky opacities representing atelectasis versus infiltrate in the left lung, stable to slightly increased. SL: [id number] at 0829 Reported and signed by: Phylicia Herman M.D. CC: Keren Dennis MD; Pancho Luu MD; Allison Calvo MD Technologist: RT Jayme(Kaila) Trnscrd Date/Time/By: 04/16/2019 (08) : By: [email or web address] Orig PrintD/T: S: 04/16/2019 (831) PAGE 1 Signed ReportCOMPREHENSIVE METABOLIC [id number] 04:56:00 Test Item Value Reference Range Comments SODIUM (test code = NA) 138 mEq/L 134-147 POTASSIUM (test code = K) 4.8 mEq/L 3.4-5.0 CHLORIDE (test code = CL) 109 mEq/L 100-108 CARBON DIOXIDE (test code = 24 mEq/L 21-33 CO2) ANION GAP (test code = GAP) 10 0-20 GLUCOSE (test code = GLU) 157 mg/dL 70-110 BLOOD UREA NITROGEN (test code 16 mg/dL 7-18 = BUN) GLOMERULAR FILTRATION RATE 72.9 80-90 Units of measure = (test code = GFR) ml/min/1.73 m2 CREATININE (test code = CREAT) 0.8 mg/dL 0.6-1.3 TOTAL PROTEIN (test code = 5.4 g/dL 6.4-8.2 PROT) ALBUMIN (test code = ALB) 1.60 g/dL 3.4-5.0 CALCIUM (test code = CA) 8.4 mg/dL 8.0-10.5 BILIRUBIN TOTAL (test code = 0.40 mg/dL 0.0-1.0 BILT) SGOT/AST (test code = AST) 17 IUnit/L 15-37 SGPT/ALT (test code = ALT) 36 IUnit/L 15-65 ALKALINE PHOSPHATASE TOTAL 109 IUnit/L 20-125 (test code = ALKP) [id number] 04:56:00 Test Item Value Reference Range Comments PHOSPHOROUS (test code = PHOS) 2.6 mg/dL 2.5-4.9 [id number] 04:56:00 Test Item Value Reference Range Comments TRIGLYCERIDES (test code = TRIG) 446 mg/dL 40-150 [id number] 04:56:00 Test Item Value Reference Range Comments MAGNESIUM (test code = MAG) 1.90 mg/dL 1.8-2.4 CBC W/AUTO [id number] 04:42:00 Test Item Value Reference Range Comments WHITE BLOOD CELL (test code = WBC) 8.25 x10 3/uL 4.5-11.0 RED BLOOD CELL (test code = RBC) 3.06 x10 6/uL 3.54-5.02 HEMOGLOBIN (test code = HGB) 9.5 g/dL 11.0-15.0 HEMATOCRIT (test code = HCT) 28.7 % 33.0-45.0 MEAN CELL VOLUME (test code = MCV) 93.8 fL 81.0-99.0 MEAN CELL HGB (test code = MCH) 31.0 pg 27.0-33.0 MEAN CELL HGB CONCETRATION (test code = MCHC) 33.1 g/dL 33 .0-37.0 RED CELL DISTRIBUTION WIDTH CV (test code = 13.4 % 11.5 -14.5 RDW) RED CELL DISTRIBUTION WIDTH SD (test code = 46.5 fL 37.0 -54.0 RDW-SD) PLATELET COUNT (test code = PLT) 122 x10 3/uL 150-400 MEAN PLATELET VOLUME (test code = MPV) 10.2 fL 7.0-9.0 LYMPHOCYTE % (test code = LY%) % 14.0-32.0 MANUAL DIFF REQUIRED (test code = MDIFF) LACTIC [id number] 04:42:00 Test Item Value Reference Range Comments LACTIC ACID (test code = LACT) 0.8 mmol/L 0.4-1.9 ARTERIAL BLOOD [id number] 04:18:00 Test Item Value Reference Range Comments ARTERIAL BLOOD GAS PH (test 7.343 7.35-7.45 code = PHA) ARTERIAL BLOOD GAS PCO2 (test 39.2 mmHg 35-45 code = PCO2A) ARTERIAL BLOOD GAS PO2 (test 82 mmHg 80-100 code = PO2A) BICARBONATE TOTAL HCO3 (test 21.4 mmol/L 22.0-26.0 code = HCO3) BASE EXCESS (test code = KETTY) -4.0 mmol/L -4-4 ABG O2 SATURATION (test code = 96 % 90-100 SATA) FIO2 (test code = FIO2A) 40 % ABG DELIVERY (test code = Vent NICO) ABG VENT MODE (test code = AC v con MODEA) ABG VENT RESP RATE (test code 12 /MIN = RRA) ABG TIDAL VOLUME (test code = 500 ml TVA) ABG PEEP (test code = PEEPA) 5 cmH2O Per formed by certified cocoa powder mixer operator at [facility] ABG TEMPERATURE (test code = 97.7 F TEMPA) ABG SITE (test code = SITEA) Art line PREDICTED AA GRADIENT (test 61 code = AP) PREDICTED PO2 (test code = OP) 176 a/A RATIO (test code = RATIO) 0.34 TCO2 ARTERIAL (test code = 23 TCO2A) A-A GRADIENT (test code = 156 AAGRADE) [id number] 01:48:00 Test Item Value Reference Range Comments GLUBED (test code = GLUBED) 146 MG/DL 70-110 Perf ormed by certified cocoa powder mixer operator at [facility] [id number] 01:03:00 Test Item Value Reference Range Comments GLUBED (test code = GLUBED) 139 MG/DL 70-110 Perf ormed by certified cocoa powder mixer operator at [facility] [id number] 20:34:00 Test Item Value Reference Range Comments GLUBED (test code = GLUBED) 141 MG/DL 70-110 Perf ormed by certified cocoa powder mixer operator at [facility] [id number] 15:17:00 Test Item Value Reference Range Comments GLUBED (test code = GLUBED) 117 MG/DL 70-110 Perf ormed by certified cocoa powder mixer operator at [facility] [id number] 13:00:00 Test Item Value Reference Range Comments GLUBED (test code = GLUBED) 123 MG/DL 70-110 Perf ormed by certified cocoa powder mixer operator at [facility] COMPREHENSIVE METABOLIC [id number] 07:28:00 Test Item Value Reference Range Comments SODIUM (test code = NA) 137 mEq/L 134-147 POTASSIUM (test code = K) 4.2 mEq/L 3.4-5.0 CHLORIDE (test code = CL) 107 mEq/L 100-108 CARBON DIOXIDE (test code = 26 mEq/L 21-33 CO2) ANION GAP (test code = GAP) 8 0-20 GLUCOSE (test code = GLU) 128 mg/dL 70-110 BLOOD UREA NITROGEN (test code 17 mg/dL 7-18 = BUN) GLOMERULAR FILTRATION RATE 85.1 80-90 Units of measure = (test code = GFR) ml/min/1.73 m2 CREATININE (test code = CREAT) 0.7 mg/dL 0.6-1.3 TOTAL PROTEIN (test code = 5.4 g/dL 6.4-8.2 PROT) ALBUMIN (test code = ALB) 1.60 g/dL 3.4-5.0 CALCIUM (test code = CA) 8.5 mg/dL 8.0-10.5 BILIRUBIN TOTAL (test code = 0.60 mg/dL 0.0-1.0 BILT) SGOT/AST (test code = AST) 41 IUnit/L 15-37 SGPT/ALT (test code = ALT) 53 IUnit/L 15-65 ALKALINE PHOSPHATASE TOTAL 106 IUnit/L 20-125 (test code = ALKP) CBC W/AUTO [id number] 07:19:00 Test Item Value Reference Range Comments WHITE BLOOD CELL (test code = WBC) 6.09 x10 3/uL 4.5-11.0 RED BLOOD CELL (test code = RBC) 3.12 x10 6/uL 3.54-5.02 HEMOGLOBIN (test code = HGB) 9.6 g/dL 11.0-15.0 HEMATOCRIT (test code = HCT) 29.2 % 33.0-45.0 MEAN CELL VOLUME (test code = MCV) 93.6 fL 81.0-99.0 MEAN CELL HGB (test code = MCH) 30.8 pg 27.0-33.0 MEAN CELL HGB CONCETRATION (test code = MCHC) 32.9 g/dL 33 .0-37.0 RED CELL DISTRIBUTION WIDTH CV (test code = 13.6 % 11.5 -14.5 RDW) RED CELL DISTRIBUTION WIDTH SD (test code = 46.1 fL 37.0 -54.0 RDW-SD) PLATELET COUNT (test code = PLT) 136 x10 3/uL 150-400 MEAN PLATELET VOLUME (test code = MPV) 10.6 fL 7.0-9.0 MANUAL DIFF REQUIRED (test code = MDIFF) YES WBC [id number] 07:19:00 Test Item Value Reference Range Comments SEGMENTED NEUTROPHILS (test code 91.8 % 37-69 = SEG) LYMPHOCYTE (test code = LYMPH) 5.5 % 23-55 MONOCYTE (test code = MON) 1.8 % 0-10 BASOPHIL (test code = BASO) 0.9 % 0.0-2.0 ANISOCYTOSIS (test code = ANISO) NORMAL PLATELET ESTIMATE (test code = Slightly Decreased THOUSAND ADEQU ATE PLTEST) PLATELET MORPHOLOGY (test code = GIANT PLATELETS PLTMORPH) CBC W/AUTO [id number] 07:18:00 Test Item Value Reference Range Comments WHITE BLOOD CELL (test code = WBC) 6.09 x10 3/uL 4.5-11.0 RED BLOOD CELL (test code = RBC) 3.12 x10 6/uL 3.54-5.02 HEMOGLOBIN (test code = HGB) 9.6 g/dL 11.0-15.0 HEMATOCRIT (test code = HCT) 29.2 % 33.0-45.0 MEAN CELL VOLUME (test code = MCV) 93.6 fL 81.0-99.0 MEAN CELL HGB (test code = MCH) 30.8 pg 27.0-33.0 MEAN CELL HGB CONCETRATION (test code = MCHC) 32.9 g/dL 33 .0-37.0 RED CELL DISTRIBUTION WIDTH CV (test code = 13.6 % 11.5 -14.5 RDW) RED CELL DISTRIBUTION WIDTH SD (test code = 46.1 fL 37.0 -54.0 RDW-SD) PLATELET COUNT (test code = PLT) 136 x10 3/uL 150-400 MEAN PLATELET VOLUME (test code = MPV) 10.6 fL 7.0-9.0 MANUAL DIFF REQUIRED (test code = MDIFF) YES WBC [id number] 07:18:00 Test Item Value Reference Range Comments ANISOCYTOSIS (test code = ANISO) PLATELET ESTIMATE (test code = PLTEST) THOUSAND ADEQUATE CBC W/AUTO [id number] 07:18:00 Test Item Value Reference Range Comments WHITE BLOOD CELL (test code = WBC) 6.09 x10 3/uL 4.5-11.0 RED BLOOD CELL (test code = RBC) 3.12 x10 6/uL 3.54-5.02 HEMOGLOBIN (test code = HGB) 9.6 g/dL 11.0-15.0 HEMATOCRIT (test code = HCT) 29.2 % 33.0-45.0 MEAN CELL VOLUME (test code = MCV) 93.6 fL 81.0-99.0 MEAN CELL HGB (test code = MCH) 30.8 pg 27.0-33.0 MEAN CELL HGB CONCETRATION (test code = MCHC) 32.9 g/dL 33 .0-37.0 RED CELL DISTRIBUTION WIDTH CV (test code = 13.6 % 11.5 -14.5 RDW) RED CELL DISTRIBUTION WIDTH SD (test code = 46.1 fL 37.0 -54.0 RDW-SD) PLATELET COUNT (test code = PLT) 136 x10 3/uL 150-400 MEAN PLATELET VOLUME (test code = MPV) 10.6 fL 7.0-9.0 MANUAL DIFF REQUIRED (test code = MDIFF) YES WBC [id number] 07:18:00 Test Item Value Reference Range Comments ANISOCYTOSIS (test code = ANISO) PLATELET ESTIMATE (test code = PLTEST) THOUSAND ADEQUATE CBC W/AUTO [id number] 06:08:00 Test Item Value Reference Range Comments WHITE BLOOD CELL (test code = WBC) 6.09 x10 3/uL 4.5-11.0 RED BLOOD CELL (test code = RBC) 3.12 x10 6/uL 3.54-5.02 HEMOGLOBIN (test code = HGB) 9.6 g/dL 11.0-15.0 HEMATOCRIT (test code = HCT) 29.2 % 33.0-45.0 MEAN CELL VOLUME (test code = MCV) 93.6 fL 81.0-99.0 MEAN CELL HGB (test code = MCH) 30.8 pg 27.0-33.0 MEAN CELL HGB CONCETRATION (test code = MCHC) 32.9 g/dL 33 .0-37.0 RED CELL DISTRIBUTION WIDTH CV (test code = 13.6 % 11.5 -14.5 RDW) RED CELL DISTRIBUTION WIDTH SD (test code = 46.1 fL 37.0 -54.0 RDW-SD) PLATELET COUNT (test code = PLT) 136 x10 3/uL 150-400 MEAN PLATELET VOLUME (test code = MPV) 10.6 fL 7.0-9.0 LYMPHOCYTE % (test code = LY%) % 14.0-32.0 MANUAL DIFF REQUIRED (test code = MDIFF) - XR CHEST 1 [id number] 05:28:00 FAX: Pancho Luu MD [phone] [place]: St: ADM FAX: Al Melendez MD [phone] FAX: Cesar UmeshMarckenya [phone] Name: NENA HERNANDEZ [place] [facility] : 1955 Age/S: 63/F [address] [place] [address] Unit #: [id number] Loc: G.M[address] [place] [address] Phys: Al Melendez MD Acct: [id number] Dis Date: Status: ADM IN PHONE #: [phone] Exam Date: 04/15/2019527 FAX #: [phone] Reason: INTUBATED EXAMS: CPT CODE: [id number] XR CHEST 1 V [id number] Chest, single view dated 04/15/2019. HISTORY: Intubated. Free air status post abdominal surgery. Comparison is made to a prior study dated 04/13/2019. An endotracheal tube is identified with the tip projecting approximately 5 cm above the serafin. A nasogastric tube is present with the tip projecting in the proximal gastric body. The heart is normal in size. The cardiomediastinal shadow is stable. Lungvolumes are decreased with atelectasis or infiltrate in both lung bases. The upper lungfields appear clear. The pulmonary vasculature appears normal in caliber. A small right pleural effusion is identified. No acute left pleural space abnormalities are noted. IMPRESSION: 1. Endotracheal tube and nasogastric tube placement. 2. Low lung volumes with bilateral basilar atelectasis or infiltrate. 3. New small right pleural effusion. SL: 131 at 0528 Reported and signed by: Saeed Ireland M.D. CC: Pancho Luu MD; Al Melendez MD; Allison Calvo MD Technologist: RT Jayme(R) Trnscrd Date/Time/By: 04/15/2019 (0528) : By: Pablo Orig Print D/T: S: 04/15/2019 (0531) PAGE 1 Signed [id number] 04:54:00 Test Item Value Reference Range Comments GLUBED (test code = GLUBED) 123 MG/DL 70-110 Perf ormed by certified cocoa powder mixer operator at [facility] [id number] 02:09:00 Test Item Value Reference Range Comments GLUBED (test code = GLUBED) 137 MG/DL 70-110 Perf ormed by certified cocoa powder mixer operator at [facility] CBC W/AUTO [id number] 00:32:00 Test Item Value Reference Range Comments WHITE BLOOD CELL (test code = WBC) 6.23 x10 3/uL 4.5-11.0 RED BLOOD CELL (test code = RBC) 3.11 x10 6/uL 3.54-5.02 HEMOGLOBIN (test code = HGB) 9.8 g/dL 11.0-15.0 HEMATOCRIT (test code = HCT) 29.2 % 33.0-45.0 MEAN CELL VOLUME (test code = MCV) 93.9 fL 81.0-99.0 MEAN CELL HGB (test code = MCH) 31.5 pg 27.0-33.0 MEAN CELL HGB CONCETRATION (test code = MCHC) 33.6 g/dL 33 .0-37.0 RED CELL DISTRIBUTION WIDTH CV (test code = 13.6 % 11.5 -14.5 RDW) RED CELL DISTRIBUTION WIDTH SD (test code = 46.0 fL 37.0 -54.0 RDW-SD) PLATELET COUNT (test code = PLT) 126 x10 3/uL 150-400 MEAN PLATELET VOLUME (test code = MPV) 10.4 fL 7.0-9.0 MANUAL DIFF REQUIRED (test code = MDIFF) YES WBC [id number] 00:32:00 Test Item Value Reference Range Comments SEGMENTED NEUTROPHILS (test code = SEG) 90.9 % 37-69 LYMPHOCYTE (test code = LYMPH) 3.6 % 23-55 MONOCYTE (test code = MON) 5.5 % 0-10 ANISOCYTOSIS (test code = ANISO) 1+ MICROCYTOSIS (test code = MICR) 1+ PLATELET ESTIMATE (test code = PLTEST) Decreased THOUSAND ADEQUA TE CBC W/AUTO [id number] 00:27:00 Test Item Value Reference Range Comments WHITE BLOOD CELL (test code = WBC) 6.23 x10 3/uL 4.5-11.0 RED BLOOD CELL (test code = RBC) 3.11 x10 6/uL 3.54-5.02 HEMOGLOBIN (test code = HGB) 9.8 g/dL 11.0-15.0 HEMATOCRIT (test code = HCT) 29.2 % 33.0-45.0 MEAN CELL VOLUME (test code = MCV) 93.9 fL 81.0-99.0 MEAN CELL HGB (test code = MCH) 31.5 pg 27.0-33.0 MEAN CELL HGB CONCETRATION (test code = MCHC) 33.6 g/dL 33 .0-37.0 RED CELL DISTRIBUTION WIDTH CV (test code = 13.6 % 11.5 -14.5 RDW) RED CELL DISTRIBUTION WIDTH SD (test code = 46.0 fL 37.0 -54.0 RDW-SD) PLATELET COUNT (test code = PLT) 126 x10 3/uL 150-400 MEAN PLATELET VOLUME (test code = MPV) 10.4 fL 7.0-9.0 MANUAL DIFF REQUIRED (test code = MDIFF) YES WBC [id number] 00:27:00 Test Item Value Reference Range Comments ANISOCYTOSIS (test code = ANISO) PLATELET ESTIMATE (test code = PLTEST) THOUSAND ADEQUATE CBC W/AUTO [id number] 00:27:00 Test Item Value Reference Range Comments WHITE BLOOD CELL (test code = WBC) 6.23 x10 3/uL 4.5-11.0 RED BLOOD CELL (test code = RBC) 3.11 x10 6/uL 3.54-5.02 HEMOGLOBIN (test code = HGB) 9.8 g/dL 11.0-15.0 HEMATOCRIT (test code = HCT) 29.2 % 33.0-45.0 MEAN CELL VOLUME (test code = MCV) 93.9 fL 81.0-99.0 MEAN CELL HGB (test code = MCH) 31.5 pg 27.0-33.0 MEAN CELL HGB CONCETRATION (test code = MCHC) 33.6 g/dL 33 .0-37.0 RED CELL DISTRIBUTION WIDTH CV (test code = 13.6 % 11.5 -14.5 RDW) RED CELL DISTRIBUTION WIDTH SD (test code = 46.0 fL 37.0 -54.0 RDW-SD) PLATELET COUNT (test code = PLT) 126 x10 3/uL 150-400 MEAN PLATELET VOLUME (test code = MPV) 10.4 fL 7.0-9.0 MANUAL DIFF REQUIRED (test code = MDIFF) YES WBC [id number] 00:27:00 Test Item Value Reference Range Comments ANISOCYTOSIS (test code = ANISO) PLATELET ESTIMATE (test code = PLTEST) THOUSAND ADEQUATE - XR ABDOMEN 1V (KUB)2019-04-14 23:59:00 FAX: Christy Ray CRNA [phone] [place]: St: [facility] FAX: Pancho Luu MD [phone] FAX: Allison Barajas [phone] Name: NENA HERNANDEZ [facility] [place] : 1955 Age/S: 63/F [address] [place] [address] Unit #: [id number] Loc: [address] [place] [address] Phys: Christy Ray CRNA Acct: [id number] Dis Date: Status: ADM IN PHONE #: [phone] Exam Date: 04/14/20192049 FAX #: [phone] Reason: NGT Placement EXAMS: CPT CODE: [id number] XR ABDOMEN 1V (KUB) [id number] Patient: NENA HERNANDEZ. : 1955; Age: 63 years; Gender: Female. MR: [id number]. Ordering physician: Christy Ray CRNA. Abdomen AP. HISTORY: NG tube placement, status post abdominal surgery. COMPARISON: None. FINDINGS: Frontal view of the abdomen was obtained. Tip and sidehole of NG tube overlie expected region of stomach. Drainage catheter noted. Skinstaples also noted. No bowel dilatation to suggest bowel obstruction.SL: PAOLO at 2913 Reported and signed by: Torito Cruz M.D. CC: Christy Ray CRNA; Pancho Luu MD; Allison Calvo MD Technologist: RT Kenny(R) Trnscrd Date/Time/By: 04/14/2019 (5069) : By: [email or web address] Orig Print D/T: S: 04/15/2019 (0003) PAGE 1 Signed ReportLACTIC ACID 2019-04-14 23:33:00 Test Item Value Reference Range Comments LACTIC ACID (test code = LACT) 0.5 mmol/L 0.4-1.9 COMPREHENSIVE METABOLIC [id number] 23:33:00 Test Item Value Reference Range Comments SODIUM (test code = NA) 137 mEq/L 134-147 POTASSIUM (test code = K) 4.2 mEq/L 3.4-5.0 CHLORIDE (test code = CL) 107 mEq/L 100-108 CARBON DIOXIDE (test code = 26 mEq/L 21-33 CO2) ANION GAP (test code = GAP) 8 0-20 GLUCOSE (test code = GLU) 130 mg/dL 70-110 BLOOD UREA NITROGEN (test code 18 mg/dL 7-18 = BUN) GLOMERULAR FILTRATION RATE 85.1 80-90 Units of measure = (test code = GFR) ml/min/1.73 m2 CREATININE (test code = CREAT) 0.7 mg/dL 0.6-1.3 TOTAL PROTEIN (test code = 5.1 g/dL 6.4-8.2 PROT) ALBUMIN (test code = ALB) 1.70 g/dL 3.4-5.0 CALCIUM (test code = CA) 8.0 mg/dL 8.0-10.5 BILIRUBIN TOTAL (test code = 0.70 mg/dL 0.0-1.0 BILT) SGOT/AST (test code = AST) 63 IUnit/L 15-37 SGPT/ALT (test code = ALT) 59 IUnit/L 15-65 ALKALINE PHOSPHATASE TOTAL 105 IUnit/L 20-125 (test code = ALKP) [id number] 23:33:00 Test Item Value Reference Range Comments PHOSPHOROUS (test code = PHOS) 2.9 mg/dL 2.5-4.9 [id number] 23:33:00 Test Item Value Reference Range Comments MAGNESIUM (test code = MAG) 1.60 mg/dL 1.8-2.4 COMPREHENSIVE METABOLIC [id number] 23:28:00 Test Item Value Reference Range Comments SODIUM (test code = NA) 137 mEq/L 134-147 POTASSIUM (test code = K) 4.2 mEq/L 3.4-5.0 CHLORIDE (test code = CL) 107 mEq/L 100-108 CARBON DIOXIDE (test code = 26 mEq/L 21-33 CO2) ANION GAP (test code = GAP) 8 0-20 GLUCOSE (test code = GLU) 130 mg/dL 70-110 BLOOD UREA NITROGEN (test code 18 mg/dL 7-18 = BUN) GLOMERULAR FILTRATION RATE 85.1 80-90 Units of measure = (test code = GFR) ml/min/1.73 m2 CREATININE (test code = CREAT) 0.7 mg/dL 0.6-1.3 TOTAL PROTEIN (test code = g/dL 6.4-8.2 PROT) ALBUMIN (test code = ALB) 1.70 g/dL 3.4-5.0 CALCIUM (test code = CA) 8.0 mg/dL 8.0-10.5 BILIRUBIN TOTAL (test code = mg/dL 0.0-1.0 BILT) SGOT/AST (test code = AST) 63 IUnit/L 15-37 SGPT/ALT (test code = ALT) 59 IUnit/L 15-65 ALKALINE PHOSPHATASE TOTAL IUnit/L 20-125 (test code = ALKP) [id number] 23:28:00 Test Item Value Reference Range Comments PHOSPHOROUS (test code = PHOS) 2.9 mg/dL 2.5-4.9 [id number] 23:28:00 Test Item Value Reference Range Comments MAGNESIUM (test code = MAG) 1.60 mg/dL 1.8-2.4 CBC W/AUTO [id number] 23:26:00 Test Item Value Reference Range Comments WHITE BLOOD CELL (test code = WBC) 6.23 x10 3/uL 4.5-11.0 RED BLOOD CELL (test code = RBC) 3.11 x10 6/uL 3.54-5.02 HEMOGLOBIN (test code = HGB) 9.8 g/dL 11.0-15.0 HEMATOCRIT (test code = HCT) 29.2 % 33.0-45.0 MEAN CELL VOLUME (test code = MCV) 93.9 fL 81.0-99.0 MEAN CELL HGB (test code = MCH) 31.5 pg 27.0-33.0 MEAN CELL HGB CONCETRATION (test code = MCHC) 33.6 g/dL 33 .0-37.0 RED CELL DISTRIBUTION WIDTH CV (test code = 13.6 % 11.5 -14.5 RDW) RED CELL DISTRIBUTION WIDTH SD (test code = 46.0 fL 37.0 -54.0 RDW-SD) PLATELET COUNT (test code = PLT) 126 x10 3/uL 150-400 MEAN PLATELET VOLUME (test code = MPV) 10.4 fL 7.0-9.0 LYMPHOCYTE % (test code = LY%) % 14.0-32.0 MANUAL DIFF REQUIRED (test code = MDIFF) ARTERIAL BLOOD [id number] 22:37:00 Test Item Value Reference Range Comments ARTERIAL BLOOD GAS PH (test 7.327 7.35-7.45 code = PHA) ARTERIAL BLOOD GAS PCO2 (test 48.0 mmHg 35-45 code = PCO2A) ARTERIAL BLOOD GAS PO2 (test 260 mmHg 80-100 code = PO2A) BICARBONATE TOTAL HCO3 (test 25.0 mmol/L 22.0-26.0 code = HCO3) BASE EXCESS (test code = KETTY) -1.0 mmol/L -4-4 ABG O2 SATURATION (test code = 100 % 90-100 SATA) FIO2 (test code = FIO2A) 100 % ABG DELIVERY (test code = Vent NICO) ABG VENT MODE (test code = AC v con MODEA) ABG VENT RESP RATE (test code 14 /MIN = RRA) ABG TIDAL VOLUME (test code = 500 ml TVA) ABG PEEP (test code = PEEPA) 5 cmH2O Per formed by certified cocoa powder mixer operator at [facility] ABG TEMPERATURE (test code = 99.3 F TEMPA) ABG SITE (test code = SITEA) Art line PREDICTED AA GRADIENT (test 170 code = AP) PREDICTED PO2 (test code = OP) 485 a/A RATIO (test code = RATIO) 0.40 TCO2 ARTERIAL (test code = 26 TCO2A) A-A GRADIENT (test code = 395 AAGRADE) LACTIC ACID [id number] 20:54:00 Test Item Value Reference Range Comments LACTIC ACID REPEAT (test code = LACTR) 0.4 mmol/l 0.4-1.9 CBC W/AUTO [id number] 15:44:00 Test Item Value Reference Range Comments WHITE BLOOD CELL (test code = 6.99 x10 3/uL 4.5-11.0 WBC) RED BLOOD CELL (test code = 3.44 x10 6/uL 3.54-5.02 RBC) HEMOGLOBIN (test code = HGB) 10.6 g/dL 11.0-15.0 HEMATOCRIT (test code = HCT) 32.0 % 33.0-45.0 MEAN CELL VOLUME (test code = 93.0 fL 81.0-99.0 MCV) MEAN CELL HGB (test code = 30.8 pg 27.0-33.0 MCH) MEAN CELL HGB CONCETRATION 33.1 g/dL 33.0-37.0 (test code = MCHC) RED CELL DISTRIBUTION WIDTH 13.5 % 11.5-14.5 CV (test code = RDW) RED CELL DISTRIBUTION WIDTH 46.2 fL 37.0-54.0 SD (test code = RDW-SD) PLATELET COUNT (test code = 134 x10 3/uL 150-400 PLT) MEAN PLATELET VOLUME (test 11.0 fL 7.0-9.0 code = MPV) NEUTROPHIL % (test code = 83.9 % 56.0-77.0 NT%) IMMATURE GRANULOCYTE % (test 2.6 % 0.0-2.0 code = IG%) LYMPHOCYTE % (test code = 5.7 % 14.0-32.0 LY%) MONOCYTE % (test code = MO%) 6.6 % 4.8-9.0 EOSINOPHIL % (test code = 0.9 % 0.3-3.7 EO%) BASOPHIL % (test code = BA%) 0.3 % 0.0-2.0 NUCLEATED RBC % (test code = 0.0 % 0-0 NRBC%) NEUTROPHIL # (test code = 5.87 x10 3/uL 2.0-7.6 NT#) IMMATURE GRANULOCYTE # (test 0.18 x10 3/uL 0.00-0.03 code = IG#) LYMPHOCYTE # (test code = 0.40 x10 3/uL 1.0-3.8 LY#) MONOCYTE # (test code = MO#) 0.46 x10 3/uL 0.1-0.8 EOSINOPHIL # (test code = 0.06 x10 3/uL 0.0-0.2 EO#) BASOPHIL # (test code = BA#) 0.02 x10 3/uL 0.0-0.2 NUCLEATED RBC # (test code = 0.00 x10 3/uL 0.0-0.1 NRBC#) MANUAL DIFF REQUIRED (test NO SLIDE REVIEWED, CONSISTENT code = MDIFF) WITH AUTO DIFF. LACTIC [id number] 15:42:00 Test Item Value Reference Range Comments LACTIC ACID (test code = LACT) 2.0 mmol/L 0.4-1.9 COMPREHENSIVE METABOLIC [id number] 15:42:00 Test Item Value Reference Range Comments SODIUM (test code = NA) 137 mEq/L 134-147 POTASSIUM (test code = K) 4.4 mEq/L 3.4-5.0 CHLORIDE (test code = CL) 107 mEq/L 100-108 CARBON DIOXIDE (test code = 24 mEq/L 21-33 CO2) ANION GAP (test code = GAP) 10 0-20 GLUCOSE (test code = GLU) 93 mg/dL 70-110 BLOOD UREA NITROGEN (test code 17 mg/dL 7-18 = BUN) GLOMERULAR FILTRATION RATE 72.9 80-90 Units of measure = (test code = GFR) ml/min/1.73 m2 CREATININE (test code = CREAT) 0.8 mg/dL 0.6-1.3 TOTAL PROTEIN (test code = 5.4 g/dL 6.4-8.2 PROT) ALBUMIN (test code = ALB) 1.90 g/dL 3.4-5.0 CALCIUM (test code = CA) 8.6 mg/dL 8.0-10.5 BILIRUBIN TOTAL (test code = 0.80 mg/dL 0.0-1.0 BILT) SGOT/AST (test code = AST) 132 IUnit/L 15-37 SGPT/ALT (test code = ALT) 75 IUnit/L 15-65 ALKALINE PHOSPHATASE TOTAL 127 IUnit/L 20-125 (test code = ALKP) CBC W/AUTO [id number] 15:24:00 Test Item Value Reference Range Comments WHITE BLOOD CELL (test code = WBC) 6.99 x10 3/uL 4.5-11.0 RED BLOOD CELL (test code = RBC) 3.44 x10 6/uL 3.54-5.02 HEMOGLOBIN (test code = HGB) 10.6 g/dL 11.0-15.0 HEMATOCRIT (test code = HCT) 32.0 % 33.0-45.0 MEAN CELL VOLUME (test code = MCV) 93.0 fL 81.0-99.0 MEAN CELL HGB (test code = MCH) 30.8 pg 27.0-33.0 MEAN CELL HGB CONCETRATION (test code = MCHC) 33.1 g/dL 33 .0-37.0 RED CELL DISTRIBUTION WIDTH CV (test code = 13.5 % 11.5 -14.5 RDW) RED CELL DISTRIBUTION WIDTH SD (test code = 46.2 fL 37.0 -54.0 RDW-SD) PLATELET COUNT (test code = PLT) 134 x10 3/uL 150-400 MEAN PLATELET VOLUME (test code = MPV) 11.0 fL 7.0-9.0 LYMPHOCYTE % (test code = LY%) % 14.0-32.0 MANUAL DIFF REQUIRED (test code = MDIFF) [id number] 15:05:00 Test Item Value Reference Range Comments GLUBED (test code = GLUBED) 95 MG/DL 70-110 Perf ormed by certified cocoa powder mixer operator at [facility] CBC W/AUTO [id number] 11:19:00 Test Item Value Reference Range Comments WHITE BLOOD CELL (test code = 6.93 x10 3/uL 4.5-11.0 WBC) RED BLOOD CELL (test code = 4.46 x10 6/uL 3.54-5.02 RBC) HEMOGLOBIN (test code = HGB) 13.8 g/dL 11.0-15.0 HEMATOCRIT (test code = HCT) 41.7 % 33.0-45.0 MEAN CELL VOLUME (test code = 93.5 fL 81.0-99.0 MCV) MEAN CELL HGB (test code = 30.9 pg 27.0-33.0 MCH) MEAN CELL HGB CONCETRATION 33.1 g/dL 33.0-37.0 (test code = MCHC) RED CELL DISTRIBUTION WIDTH 13.4 % 11.5-14.5 CV (test code = RDW) RED CELL DISTRIBUTION WIDTH 45.9 fL 37.0-54.0 SD (test code = RDW-SD) PLATELET COUNT (test code = 165 x10 3/uL 150-400 PLT) MEAN PLATELET VOLUME (test 10.5 fL 7.0-9.0 code = MPV) NEUTROPHIL % (test code = 85.1 % 56.0-77.0 NT%) IMMATURE GRANULOCYTE % (test 1.6 % 0.0-2.0 code = IG%) LYMPHOCYTE % (test code = 7.2 % 14.0-32.0 LY%) MONOCYTE % (test code = MO%) 4.8 % 4.8-9.0 EOSINOPHIL % (test code = 1.0 % 0.3-3.7 EO%) BASOPHIL % (test code = BA%) 0.3 % 0.0-2.0 NUCLEATED RBC % (test code = 0.0 % 0-0 NRBC%) NEUTROPHIL # (test code = 5.90 x10 3/uL 2.0-7.6 NT#) IMMATURE GRANULOCYTE # (test 0.11 x10 3/uL 0.00-0.03 code = IG#) LYMPHOCYTE # (test code = 0.50 x10 3/uL 1.0-3.8 LY#) MONOCYTE # (test code = MO#) 0.33 x10 3/uL 0.1-0.8 EOSINOPHIL # (test code = 0.07 x10 3/uL 0.0-0.2 EO#) BASOPHIL # (test code = BA#) 0.02 x10 3/uL 0.0-0.2 NUCLEATED RBC # (test code = 0.00 x10 3/uL 0.0-0.1 NRBC#) MANUAL DIFF REQUIRED (test NO SLIDE REVIEWED, CONSISTENT code = MDIFF) WITH AUTO DIFF. BASIC METABOLIC [id number] 10:32:00 Test Item Value Reference Range Comments SODIUM (test code = NA) 136 mEq/L 134-147 POTASSIUM (test code = K) 4.3 mEq/L 3.4-5.0 CHLORIDE (test code = CL) 103 mEq/L 100-108 CARBON DIOXIDE (test code = 27 mEq/L 21-33 CO2) ANION GAP (test code = GAP) 10 0-20 GLUCOSE (test code = GLU) 72 mg/dL 70-110 BLOOD UREA NITROGEN (test code 17 mg/dL 7-18 = BUN) GLOMERULAR FILTRATION RATE 63.7 80-90 Units of measure = (test code = GFR) ml/min/1.73 m2 CREATININE (test code = CREAT) 0.9 mg/dL 0.6-1.3 CALCIUM (test code = CA) 9.6 mg/dL 8.0-10.5 CBC W/AUTO [id number] 09:57:00 Test Item Value Reference Range Comments WHITE BLOOD CELL (test code = WBC) 6.93 x10 3/uL 4.5-11.0 RED BLOOD CELL (test code = RBC) 4.46 x10 6/uL 3.54-5.02 HEMOGLOBIN (test code = HGB) 13.8 g/dL 11.0-15.0 HEMATOCRIT (test code = HCT) 41.7 % 33.0-45.0 MEAN CELL VOLUME (test code = MCV) 93.5 fL 81.0-99.0 MEAN CELL HGB (test code = MCH) 30.9 pg 27.0-33.0 MEAN CELL HGB CONCETRATION (test code = MCHC) 33.1 g/dL 33 .0-37.0 RED CELL DISTRIBUTION WIDTH CV (test code = 13.4 % 11.5 -14.5 RDW) RED CELL DISTRIBUTION WIDTH SD (test code = 45.9 fL 37.0 -54.0 RDW-SD) PLATELET COUNT (test code = PLT) 165 x10 3/uL 150-400 MEAN PLATELET VOLUME (test code = MPV) 10.5 fL 7.0-9.0 LYMPHOCYTE % (test code = LY%) % 14.0-32.0 MANUAL DIFF REQUIRED (test code = MDIFF) URINALYSIS [id number] 02:09:00 Test Item Value Reference Range Comments UA COLOR (test code = COLU) YELLOW YEL/STRAW UA APPEARANCE (test code = APPU) SL CLOUDY CLEAR UA GLUCOSE DIPSTICK (test code = DGLUU) NEGATIVE NEGATIVE UA BILIRUBIN DIPSTICK (test code = BILU) NEGATIVE NEGATIV E UA KETONE DIPSTICK (test code = KETU) NEGATIVE NEGATIVE UA SPECIFIC GRAVITY (test code = SGU) 1.023 1.005-1.03 0 UA BLOOD DIPSTICK (test code = HAYLEE) 1+ NEGATIVE UA PH DIPSTICK (test code = HIEU) 5.0 5.0-7.0 UA PROTEIN DIPSTICK (test code = PROU) NEGATIVE NEGATIVE UA UROBILINIOGEN DIPSTICK (test code = URO) 0.2 mg/dL 0.2- 1.0 UA NITRITE DIPSTICK (test code = KEVIN) NEGATIVE NEGATIVE UA LEUKOCYTE ESTERASE DIPSTICK (test code = NEGATIVE NEGA TIVE LEUU) UA WBC (test code = WBCU) 4-9 WBC/HPF 0-3 UA RBC (test code = RBCU) 0-3 RBC/HPF 0-3 UA BACTERIA (test code = BACU) NONE SEEN /HPF NONE SEEN UA SQUAMOUS CELLS (test code = SQU) 0-5 /HPF NONE SEEN COMMENTS: Clean [id number] 23:58:00 Test Item Value Reference Range Comments TROPONIN-I (test < 0.015 ng/mL 0.000-0.045 Negative: <= 0.045 code = TROPI) Positive: >= 0.046 Correlation with serial results, other cardiac ma rkers andclinical findings is nece ssary to determine the clinicalsign ificance of this result. Results using different methodologies sh ould not be comparedto one a nother as quantitative res ults may vary by method. - CTA CHEST FOR [id number] 22:52:00 Name: NENA HERNANDEZ [facility] [place] : 1955 Age/S: 63 / F [address] [place], [place] [address] Unit #: [id number] Loc: Andrew [id number] Phys: Heidi Alvarez NP Acct: [id number] Dis Date: Status: REG ER PHONE #: [phone] Exam Date: 04/13/20192122 FAX #: [phone] Reason: upepr abd pain, distention, SOB, s/p hernia rep EXAMS: CPTCODE: [id number] [place] [address] [place] ANGIOGRAM CHEST, CONTRAST-ENHANCED CT ABDOMEN AND PELVIS INDICATION: Dyspnea. Abdominal distention and upper abdominal pain. Status post hernia repair. Postop day 2. TECHNIQUE: 100 mL Isovue-300 iodinated intravenous contrast was administered. CT angiography of the chest and contrast-enhanced CT abdomen and pelvis was performed with axial images. Maximum intensity projection and 3-D images were also reviewed. CT imaging performed at this location utilizes radiation dose optimization technique which includes one or more of the followin) Automated exposure control; 2) Adjustment of the mA and/or kV according to patient's size;3) Use of iterative reconstruction techniques. DLP (mGy-cm): 1124 COMPARISONS: CT abdomen and pelvis 02/12/2019. CT chest 11/08/2017. CT abdomen pelvis 07/11/2015 FINDINGS: CTA CHEST: There is no acute osseous fracture or dislocation. There is a chronic healed deformity of the left humeral head. There is no organized fluid collection or mass in the soft tissues. There is a simple fluid density 1.8x 4.5 cm pericardial cyst in the right cardiophrenic sulcus, similar to prior. No specific cy tional follow-up recommended. There is no solid mediastinal mass or lymphadenopathy. The pulmonary arteries are normal caliber with no pulmonary embolism. Theheart size is normal. There is no pericardial effusion. There is a mild burden of atherosclerotic calcification of the coronary arteries. There is mild atherosclerotic vascular calcification of the aorta. The aorta reveals no aneurysm or acute process. The esophagus reveals no wall thickening, mass or dilation. There are trace simple density pleural effusions, right greater than left. There is moderate bronchiectasis. There is mildperipheral mucous plugging of the bronchi in the lower lobes. There is partial PAGE 1 Signed Report (CONTINUED) Name: NENA HERNANDEZ [facility] [place] : 1955 Age/S: 63 / F [address] [place] [address] Unit #: [id number] Loc: DARWIN Morales [address] Phys: Heidi Alvarez [employer]ILD[employer]ISER Acct: [id number] Dis Date: Status: REG ER PHONE #: [phone] Exam Date: 04/13/20192122 FAX #: [phone] Reason: upepr abd pain, distention, SOB, s/p hernia rep EXAMS: CPT CODE: [id number] [place] [address] <Continued> atelectasis of both lower lobes. There is scar in the anterior lungs. There is no evidence of pneumonia. There is no pneumothorax. There are low lung volumes. CT ABDOMEN AND PELVIS: There is no acute osseous fracture or dislocation. There are new surgical changes of ventral abdominal wall-herniorrhaphy There is moderate atherosclerotic vascular calcification of the aorta. The aorta reveals no aneurysm or acute process. The inferior vena cava reveals no acute process. There is no acute hepatic process. The gallbladder and bile ducts reveal no acute process. The pancreas reveals no acute process. The spleen reveals no acute process. The adrenal glands reveal no acute processor mass. There is no acute renal process. There is a nonspecific lobular contour of both kidneys. The urinary bladder reveals no acute process. The uterus is absent. There are benign vascular calcifications in the pelvis. There is amassive amount of intra-abdominal free gas. There is a trace amount of simple density free fluid in the abdomen. There is no loculated intra-abdominal fluid collection to suggest an abscess. There is no bowel obstruction. There is no bowel mucosal thickening or inflammation. There are surgical changes of enteroenteric anastomosis in the upper pelvis. The appendix is not identified, but there is no suspicious finding to suggest an acute inflammatory process in the expected region of the appendix. IMPRESSION: CTA CHEST: PAGE 2 Signed Report (CONTINUED) Name: [facility] Kvng Anguiano : 1955 Age/S: 63 / F [address] [place] [address] Unit #: [id number] Loc: [facility] [address] Phys: Heidi Alvarez NP Acct: [id number] Dis Date: Status: REG ER PHONE #: [phone] Exam Date: 04/13/20192122 FAX #: [phone] Reason: upepr abd pain, distention, SOB, s/p hernia rep EXAMS: CPT [place]: [id number] [place] [address] <Continued> 1. There is nopulmonary embolism. 2. There are trace bilateral simple density pleural effusions. 3. There is partial atelectasis of the lower lobes of the lungs. There is no evidence of pneumonia. 4. There is moderate bronchiectasis. There is mild peripheral mucous plugging in the bronchi of the lower lobes. CT ABDOMEN AND PELVIS: 1. There is a massive amount of intra-abdominal free gas, greater than expected postop day 2. Occult bowel perforation may be present. 2. There is a small amount of simple density intra-abdominal free fluid which is nonspecific but probably postoperative. There is no intra-abdominal abscess or hemorrhage. 3. There is no focal area of bowel wall disruption detected. 4. There is no bowel obstruction. This report contains findings that may be critical to patient care. The findings were discussed with Dr. 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 at 8961 Reported and signed by: Juve Carrera D.O. CC: Reinaldo Mccormick MD; Heidi Alvarez NP; Allison Calvo MD Technologist:Chong Izquierdo, RT(R) CTDI: DLP: Trnscb Date/Time: 04/13/2019 (2251) [email or web address] Orig Print D/T: S: 04/13/2019 (2507) PAGE 3 Signed Report - CT ABD PELVIS [id number] 22:52:00 Name: [facility] [place] : 1955 Age/S: 63 / F [address] [place] [address] Unit #: [id number] Loc: DARWIN Morales77598 Phys: Heidi Alvarez NP Acct: [id number] Dis Date: Status: REG ER PHONE #: [phone] Exam Date: 04/13/20192122 FAX #: [phone] Reason: upepr abd pain, distention, SOB, s/o hernia rep EXAMS: CPTCODE: [id number] CT ABD PELVIS W/CONT 07333 CT ANGIOGRAM CHEST, CONTRAST-ENHANCED CT ABDOMEN AND PELVIS INDICATION: Dyspnea. Abdominal distention and upper abdominal pain. Status post hernia repair. Postop day 2. TECHNIQUE: 100 mL Isovue-300 iodinated intravenous contrast was administered. CT angiography of the chest and contrast-enhanced CT abdomen and pelvis was performed with axial images. Maximum intensity projection and 3-D images were also reviewed. CT imaging performed at this location utilizes radiation dose optimization technique which includes one or more of the followin) Automated exposure control; 2) Adjustment of the mA and/or kV according to patient's size;3) Use of iterative reconstruction techniques. DLP (mGy-cm): 1124 COMPARISONS: CT abdomen and pelvis 02/12/2019. CT chest 11/08/2017. CT abdomen pelvis 07/11/2015 FINDINGS: CTA CHEST: There is no acute osseous fracture or dislocation. There is a chronic healed deformity of the left humeral head. There is no organized fluid collection or mass in the soft tissues. There is a simple fluid density 1.8x 4.5 cm pericardial cyst in the right cardiophrenic sulcus, similar to prior. No specific cy tional follow-up recommended. There is no solid mediastinal mass or lymphadenopathy. The pulmonary arteries are normal caliber with no pulmonary embolism. Theheart size is normal. There is no pericardial effusion. There is a mild burden of atherosclerotic calcification of the coronary arteries. There is mild atherosclerotic vascular calcification of the aorta. The aorta reveals no aneurysm or acute process. The esophagus reveals no wall thickening, mass or dilation. There are trace simple density pleural effusions, right greater than left. There is moderate bronchiectasis. There is mildperipheral mucous plugging of the bronchi in the lower lobes. There is partial PAGE 1 Signed Report (CONTINUED) Name: NENA HERNANDEZ [facility] : 1955 Age/S: 63 / F [address] [place] [address] Blvd Unit #: [id number] Loc: [facility] [place] [address] Phys: Heidi Alvarez NP Acct: [id number] Dis Date: Status: REG ER PHONE #: [phone] Exam Date: 04/13/20192122 FAX #: [phone] Reason: upepr abd pain, distention, SOB, s/o hernia rep EXAMS: CPT CODE: [id number] CT ABD PELVIS W/CONT 53124 <Continued> atelectasis of both lower lobes. There is scar in the anterior lungs. There is no evidence of pneumonia. There is no pneumothorax. There are low lung volumes. CT ABDOMEN AND PELVIS: There is no acute osseous fracture or dislocation. There are new surgical changes of ventral abdominal wall-herniorrhaphy There is moderate atherosclerotic vascular calcification of the aorta. The aorta reveals no aneurysm or acute process. The inferior vena cava reveals no acute process. There is no acute hepatic process. The gallbladder and bile ducts reveal no acute process. The pancreas reveals no acute process. The spleen reveals no acute process. The adrenal glands reveal no acute processor mass. There is no acute renal process. There is a nonspecific lobular contour of both kidneys. The urinary bladder reveals no acute process. The uterus is absent. There are benign vascular calcifications in the pelvis. There is amassive amount of intra-abdominal free gas. There is a trace amount of simple density free fluid in the abdomen. There is no loculated intra-abdominal fluid collection to suggest an abscess. There is no bowel obstruction. There is no bowel mucosal thickening or inflammation. There are surgical changes of enteroenteric anastomosis in the upper pelvis. The appendix is not identified, but there is no suspicious finding to suggest an acute inflammatory process in the expected region of the appendix. IMPRESSION: CTA CHEST: PAGE 2 Signed Report (CONTINUED) Name: NENA HERNANDEZ [facility] : 1955 Age/S: 63 / F [address] [place] [address] Blvd Unit #: [id number] Loc: [place] [address] Phys: Heidi Alvarez [employer]ILD[employer]ISER Acct: [id number] Dis Date: Status: REG ER PHONE #: [phone] Exam Date: 04/13/20192122 FAX #: [phone] Reason: upepr abd pain, distention, SOB, s/o hernia rep EXAMS: CPT CODE: [id number] CT ABD PELVIS W/CONT 66179 <Continued> 1. There is nopulmonary embolism. 2. There are trace bilateral simple density pleural effusions. 3. There is partial atelectasis of the lower lobes of the lungs. There is no evidence of pneumonia. 4. There is moderate bronchiectasis. There is mild peripheral mucous plugging in the bronchi of the lower lobes. CT ABDOMEN AND PELVIS: 1. There is a massive amount of intra-abdominal free gas, greater than expected postop day 2. Occult bowel perforation may be present. 2. There is a small amount of simple density intra-ab dominal free fluid which is nonspecific but probably postoperative. There is no intra-abdominal abscess or hemorrhage. 3. There is no focal area of bowel wall disruption detected. 4. There is no bowel obstruction. This report contains findings that may be critical to patient care. The findings were discussed with Dr. 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 at 6412 Reported and signed by: Juve Carrera D.O. CC: Reinaldo Mccormick MD; Heidi Alvarez NP; Allison Calvo MD Technologist:Chong Izquierdo, RT(R) CTDI: DLP: Trnscb Date/Time: 04/13/2019 (2251) [email or web address] Orig Print D/T: S: 04/13/2019 (6979) PAGE 3 Signed Report - XR CHEST 1 [id number] 22:24:00 FAX: Reinaldo Medina MD [phone] [place]: St: REG FAX: Heidi Alvarez NP [phone] FAX: Allison Barajas [phone] Name: NENA HERNANDEZ [facility] : 1955 Age/S: 63/F [address] Unit #: [id number] Loc: [place] [address] Phys: Heidi Alvarez NP Acct: [id number] Dis Date: Status: REG ER PHONE #: [phone] Exam Date: 04/13/20192136 FAX #: [phone] Reason: Abdominal Pain EXAMS: CPT CODE: [id number] XR CHEST 1 V 33941 XR CHEST 1 VIEW HISTORY: Abdominal Pain. COMPARISON: CXR 04/07/2019. FINDINGS: Expiratory semiupright portable exam. Heartand vascular markings are accentuated by technique. No pleural fluid is apparent. No pneumothorax. Other than degenerative changes, the bones are intact. There is a large amount of free air below each hemidiaphragm. These findings were reported by telephone to Heidi Alvarez NP at 10:20 PM on 04/13/2019. There is additional history of recent abdominal surgery which may account for this finding. IMPRESSION: Large volume peritoneal gas may relate to recent abdominal surgery. SL: TIFFANIEH at 5697 Reported and signed by: Delmer Shanks M.D. CC: Reinaldo Mccormick MD; Heidi Alvarez NP; Allison Calvo MD Technologist: Luis Fernando Dean, RT(R); LATOYA Cheek RT(R) Trnscrd Date/Time/By: 04/13/2019 (4680) : By: [email or web address] Orig Print D/T: S: 04/13/2019 (9551) PAGE 1 Signed ReportHEPATIC FUNCTION [id number] 20:42:00 Test Item Value Reference Range Comments TOTAL PROTEIN (test code = PROT) 8.7 g/dL 6.4-8.2 ALBUMIN (test code = ALB) 3.40 g/dL 3.4-5.0 BILIRUBIN TOTAL (test code = BILT) 1.70 mg/dL 0.0-1.0 BILIRUBIN DIRECT (test code = BILD) 0.80 MG/DL 0.0-0.30 BILIRUBIN INDIRECT (test code = BILIND) 0.90 MG/DL SGOT/AST (test code = AST) 29 IUnit/L 15-37 SGPT/ALT (test code = ALT) 31 IUnit/L 15-65 ALKALINE PHOSPHATASE TOTAL (test code = ALKP) 183 IUnit/L 20 -125 [id number] 20:42:00 Test Item Value Reference Range Comments LIPASE (test code = LIP) 42 IUnit/L 73-393 HCG SERUM [id number] 20:42:00 Test Item Value Reference Range Comments HCG SERUM QUAL (test code = HCGQL) SERUM NEGATIVE NEGATIVE PROTHROMBIN [id number] 20:42:00 Test Item Value Reference Range Comments PROTHROMBIN TIME PATIENT 15.4 SECONDS 9.3-12.9 (test code = PTP) INTERNATIONAL NORMAL RATIO 1.4 0.8-1.2 TARGET INR BY (test code = INR) INDICATION I ndication INR1. Prophylax is of venous thrombosis 2.0 - 3.0 (orthopedi c surgery), Prophylaxis of venous thrombosis (othe r than high-risk surg yumiko), Treatment of Melonie p Vein Thrombosis/Pulmo nary Embolism, Preven tion of systemic embolis m - Tissue heart valves, Acute Myocardial Infar ction (to prevent system ic embolism), Valvular heart d isease, Atrial Fibrillat ion, Bileaflet mechan ical valve in aortic positi on.2. Mechanical prost hetic valves (high risk), 2.5 - 3.5 Presence of Lupu s Anticoagulant or Antiphospholipid Antibodies, Prevention of systemic embolism - Acute Myocardial Infarction (to prevent recurrent infarc t). HEPATIC FUNCTION [id number] 20:28:00 Test Item Value Reference Range Comments TOTAL PROTEIN (test code = PROT) g/dL 6.4-8.2 ALBUMIN (test code = ALB) g/dL 3.4-5.0 BILIRUBIN TOTAL (test code = BILT) mg/dL 0.0-1.0 BILIRUBIN DIRECT (test code = BILD) MG/DL 0.0-0.30 SGOT/AST (test code = AST) IUnit/L 15-37 SGPT/ALT (test code = ALT) IUnit/L 15-65 ALKALINE PHOSPHATASE TOTAL (test code = ALKP) IUnit/L 20 -125 [id number] 20:28:00 Test Item Value Reference Range Comments LIPASE (test code = LIP) IUnit/L 73-393 HCG SERUM [id number] 20:28:00 Test Item Value Reference Range Comments HCG SERUM QUAL (test code = HCGQL) SERUM NEGATIVE NEGATIVE LACTIC ACID [id number] 20:27:00 Test Item Value Reference Range Comments LACTIC ACID POC (test code = 0.8 MMOL/L 0.90-1.70 Per formed by certified LACTP) 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 12-1.32 ISTAT-GLUCOSE (test code = GLUP) MG/DL 70-110 ISTAT-BUN (test code = BUNP) MG/DL 7-18 BEDSIDE CREATININE (test code = CREATBED) MG/DL 0.6-1. 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 [facility] ISTAT CARBON DIOXIDE (test 22.0 mmol/L code = ISTAT-CO2) ISTAT CALCIUM IONIZED (test 1.01 MG/DL 1.12-1.32 code = ISTAT-LEI) ISTAT-GLUCOSE (test code = 79 MG/DL 70-110 GLUP) ISTAT-BUN (test code = BUNP) 20 MG/DL 7-18 BEDSIDE CREATININE (test code 0.7 MG/DL 0.6-1.3 = CREATBED) GLOMERULAR FILTRATION RATE 90 ML/MIN POC (test code = GFRBED) CBC W/AUTO [id number] 20:26:00 Test Item Value Reference Range Comments WHITE BLOOD CELL (test code = WBC) 11.98 x10 3/uL 4.5-11.0 RED BLOOD CELL (test code = RBC) 4.43 x10 6/uL 3.54-5.02 HEMOGLOBIN (test code = HGB) 13.9 g/dL 11.0-15.0 HEMATOCRIT (test code = HCT) 41.9 % 33.0-45.0 MEAN CELL VOLUME (test code = MCV) 94.6 fL 81.0-99.0 MEAN CELL HGB (test code = MCH) 31.4 pg 27.0-33.0 MEAN CELL HGB CONCETRATION (test code = MCHC) 33.2 g/dL 33 .0-37.0 RED CELL DISTRIBUTION WIDTH CV (test code = 13.6 % 11.5 -14.5 RDW) RED CELL DISTRIBUTION WIDTH SD (test code = 47.1 fL 37.0 -54.0 RDW-SD) PLATELET COUNT (test code = PLT) 176 x10 3/uL 150-400 MEAN PLATELET VOLUME (test code = MPV) 12.8 fL 7.0-9.0 NEUTROPHIL % (test code = NT%) 86.4 % 56.0-77.0 IMMATURE GRANULOCYTE % (test code = IG%) 2.3 % 0.0-2.0 LYMPHOCYTE % (test code = LY%) 5.9 % 14.0-32.0 MONOCYTE % (test code = MO%) 2.3 % 4.8-9.0 EOSINOPHIL % (test code = EO%) 2.8 % 0.3-3.7 BASOPHIL % (test code = BA%) 0.3 % 0.0-2.0 NUCLEATED RBC % (test code = NRBC%) 0.0 % 0-0 NEUTROPHIL # (test code = NT#) 10.36 x10 3/uL 2.0-7.6 IMMATURE GRANULOCYTE # (test code = IG#) 0.27 x10 3/uL 0.00-0. 03 LYMPHOCYTE # (test code = LY#) 0.71 x10 3/uL 1.0-3.8 MONOCYTE # (test code = MO#) 0.27 x10 3/uL 0.1-0.8 EOSINOPHIL # (test code = EO#) 0.34 x10 3/uL 0.0-0.2 BASOPHIL # (test code = BA#) 0.03 x10 3/uL 0.0-0.2 NUCLEATED RBC # (test code = NRBC#) 0.00 x10 3/uL 0.0-0.1 MANUAL DIFF REQUIRED (test code = MDIFF) NO BASIC METABOLIC [id number] 08:39:00 Test Item Value Reference Range Comments SODIUM (test code = NA) 139 mEq/L 134-147 POTASSIUM (test code = K) 3.9 mEq/L 3.4-5.0 CHLORIDE (test code = CL) 108 mEq/L 100-108 CARBON DIOXIDE (test code = 24 mEq/L 21-33 CO2) ANION GAP (test code = GAP) 11 0-20 GLUCOSE (test code = GLU) 97 mg/dL 70-110 BLOOD UREA NITROGEN (test code 12 mg/dL 7-18 = BUN) GLOMERULAR FILTRATION RATE 72.9 80-90 Units of measure = (test code = GFR) ml/min/1.73 m2 CREATININE (test code = CREAT) 0.8 mg/dL 0.6-1.3 CALCIUM (test code = CA) 8.6 mg/dL 8.0-10.5 CBC W/AUTO [id number] 08:05:00 Test Item Value Reference Range Comments WHITE BLOOD CELL (test code = WBC) 8.51 x10 3/uL 4.5-11.0 RED BLOOD CELL (test code = RBC) 3.63 x10 6/uL 3.54-5.02 HEMOGLOBIN (test code = HGB) 11.4 g/dL 11.0-15.0 HEMATOCRIT (test code = HCT) 34.4 % 33.0-45.0 MEAN CELL VOLUME (test code = MCV) 94.8 fL 81.0-99.0 MEAN CELL HGB (test code = MCH) 31.4 pg 27.0-33.0 MEAN CELL HGB CONCETRATION (test code = MCHC) 33.1 g/dL 33 .0-37.0 RED CELL DISTRIBUTION WIDTH CV (test code = 13.1 % 11.5 -14.5 RDW) RED CELL DISTRIBUTION WIDTH SD (test code = 45.1 fL 37.0 -54.0 RDW-SD) PLATELET COUNT (test code = PLT) 116 x10 3/uL 150-400 MEAN PLATELET VOLUME (test code = MPV) 11.0 fL 7.0-9.0 NEUTROPHIL % (test code = NT%) 67.5 % 56.0-77.0 IMMATURE GRANULOCYTE % (test code = IG%) 0.2 % 0.0-2.0 LYMPHOCYTE % (test code = LY%) 23.6 % 14.0-32.0 MONOCYTE % (test code = MO%) 5.8 % 4.8-9.0 EOSINOPHIL % (test code = EO%) 2.4 % 0.3-3.7 BASOPHIL % (test code = BA%) 0.5 % 0.0-2.0 NUCLEATED RBC % (test code = NRBC%) 0.0 % 0-0 NEUTROPHIL # (test code = NT#) 5.75 x10 3/uL 2.0-7.6 IMMATURE GRANULOCYTE # (test code = IG#) 0.02 x10 3/uL 0.00-0. 03 LYMPHOCYTE # (test code = LY#) 2.01 x10 3/uL 1.0-3.8 MONOCYTE # (test code = MO#) 0.49 x10 3/uL 0.1-0.8 EOSINOPHIL # (test code = EO#) 0.20 x10 3/uL 0.0-0.2 BASOPHIL # (test code = BA#) 0.04 x10 3/uL 0.0-0.2 NUCLEATED RBC # (test code = NRBC#) 0.00 x10 3/uL 0.0-0.1 MANUAL DIFF REQUIRED (test code = MDIFF) NO BASIC METABOLIC [id number] 14:31:00 Test Item Value Reference Range Comments SODIUM (test code = NA) 138 mEq/L 134-147 POTASSIUM (test code = K) 4.0 mEq/L 3.4-5.0 CHLORIDE (test code = CL) 102 mEq/L 100-108 CARBON DIOXIDE (test code = 30 mEq/L 21-33 CO2) ANION GAP (test code = GAP) 10 0-20 GLUCOSE (test code = GLU) 74 mg/dL 70-110 BLOOD UREA NITROGEN (test code 13 mg/dL 7-18 = BUN) GLOMERULAR FILTRATION RATE 72.9 80-90 Units of measure = (test code = GFR) ml/min/1.73 m2 CREATININE (test code = CREAT) 0.8 mg/dL 0.6-1.3 CALCIUM (test code = CA) 9.9 mg/dL 8.0-10.5 PROTHROMBIN [id number] 14:14:00 Test Item Value Reference Range Comments PROTHROMBIN TIME PATIENT 12.0 SECONDS 9.3-12.9 (test code = PTP) INTERNATIONAL NORMAL RATIO 1.1 0.8-1.2 TARGET INR BY (test code = INR) INDICATION I ndication INR1. Prophylax is of venous thrombosis 2.0 - 3.0 (orthopedi c surgery), Prophylaxis of venous thrombosis (othe r than high-risk surg yumiko), Treatment of Melonie p Vein Thrombosis/Pulmo nary Embolism, Preven tion of systemic embolis m - Tissue heart valves, Acute Myocardial Infar ction (to prevent system ic embolism), Valvular heart d isease, Atrial Fibrillat ion, Bileaflet mechan ical valve in aortic positi on.2. Mechanical prost hetic valves (high risk), 2.5 - 3.5 Presence of Lupu s Anticoagulant or Antiphospholipid Antibodies, Prevention of systemic embolism - Acute Myocardial Infarction (to prevent recurrent infarc t). THROMBOPLASTIN TIME [id number] 14:14:00 Test Item Value Reference Range Comments THROMBOPLASTIN TIME PARTIAL 31.4 Seconds 25.0-39.5 Therapeutic Range: (test code = PTT) 50.4 - 88.3 Se conds Effective 0 02/04/2019 CBC W/AUTO [id number] 14:10:00 Test Item Value Reference Range Comments WHITE BLOOD CELL (test code = WBC) 9.39 x10 3/uL 4.5-11.0 RED BLOOD CELL (test code = RBC) 4.59 x10 6/uL 3.54-5.02 HEMOGLOBIN (test code = HGB) 14.2 g/dL 11.0-15.0 HEMATOCRIT (test code = HCT) 42.4 % 33.0-45.0 MEAN CELL VOLUME (test code = MCV) 92.4 fL 81.0-99.0 MEAN CELL HGB (test code = MCH) 30.9 pg 27.0-33.0 MEAN CELL HGB CONCETRATION (test code = MCHC) 33.5 g/dL 33 .0-37.0 RED CELL DISTRIBUTION WIDTH CV (test code = 13.1 % 11.5 -14.5 RDW) RED CELL DISTRIBUTION WIDTH SD (test code = 43.8 fL 37.0 -54.0 RDW-SD) PLATELET COUNT (test code = PLT) 202 x10 3/uL 150-400 MEAN PLATELET VOLUME (test code = MPV) 10.9 fL 7.0-9.0 NEUTROPHIL % (test code = NT%) 57.8 % 56.0-77.0 IMMATURE GRANULOCYTE % (test code = IG%) 0.3 % 0.0-2.0 LYMPHOCYTE % (test code = LY%) 32.4 % 14.0-32.0 MONOCYTE % (test code = MO%) 5.1 % 4.8-9.0 EOSINOPHIL % (test code = EO%) 3.8 % 0.3-3.7 BASOPHIL % (test code = BA%) 0.6 % 0.0-2.0 NUCLEATED RBC % (test code = NRBC%) 0.0 % 0-0 NEUTROPHIL # (test code = NT#) 5.42 x10 3/uL 2.0-7.6 IMMATURE GRANULOCYTE # (test code = IG#) 0.03 x10 3/uL 0.00-0. 03 LYMPHOCYTE # (test code = LY#) 3.04 x10 3/uL 1.0-3.8 MONOCYTE # (test code = MO#) 0.48 x10 3/uL 0.1-0.8 EOSINOPHIL # (test code = EO#) 0.36 x10 3/uL 0.0-0.2 BASOPHIL # (test code = BA#) 0.06 x10 3/uL 0.0-0.2 NUCLEATED RBC # (test code = NRBC#) 0.00 x10 3/uL 0.0-0.1 MANUAL DIFF REQUIRED (test code = MDIFF) NO - XR CHEST 2 [id number] 13:41:00 FAX: Stef Connelly MD [phone] [place]: St: PRE FAX: Allison Barajas [phone] Name: NENA HERNANDEZ [facility] [place] : 1955 Age/S: 63/F [address] [place] [address] Unit #: [id number] Loc: [place] [address] Phys: Stef Connelly MD Acct: [id number] Dis Date: Status: PRE SDC PHONE #: [phone] Exam Date: 04/07/2019 1316 FAX #: [phone] Reason: LAP HERNIA RAPAIR EXAMS: CPT CODE: [id number] XR CHEST 2 V 51754 EXAM: PA and lateral chest. EXAM DATE: April 07, 2019 1235 hours CLINICAL HISTORY: hernia repair COMPARISON: January 01, 2017 Heart size is within normal limits. .Tortuosity of the intrathoracic aorta is identified. Density overlying the 6th rib inthe lateral position of the right lower lung is stable compared to the prior exam. The lungs are otherwise free of acute disease. Mild elevation of the left hemidiaphragm is stable.. Osseous structures demonstrate no acute abnormalities. IMPRESSION: No evidence of acute cardiopulmonary disease. at 1341 Reported and signed by: Carolyn Serrano M.D. CC: Stef Connelly MD; Allison Calvo MD Tech nologist: RT Tyrese(R) Trnscrd Date/Time/By: 04/07/2019 (9750) : By: Claudio Orig Print D/T: S: 04/07/2019 (7728) PAGE 1 Signed ReportCREATININE W ESTIMATED [id number] 12:04:00 Test Item Value Reference Range Comments BEDSIDE CREATININE (test code = CREATBED) 0.9 MG/DL 0.6-1. 3 GLOMERULAR FILTRATION RATE POC (test code = 68 ML/MIN GFRBED) ENTER BEDSIDE CREATININE RESULT: 0.89Serial Number: [id number] Name of User Performing Test: ELIZABETH- CT ABD PELVIS W/[id number] 11:41:00 Name: NENA HERNANDEZ [facility] [place] : 1955 Age/S: 63 / F [address] [place] [address] Unit #: [id number] Loc: [place] [id number] Phys: Stef Connelly MD Acct: [id number] Dis Date: Status: REG CLI PHONE #: [phone] Exam Date: 02/13/2019 1110 FAX #: [phone] Reason: R10.84,GENERALIZED ABDOMINAL PAIN. EXAMS: CPTCODE: [id number] CT ABD PELVIS W/CONT 10712 PROCEDURE: CT ABDOMEN AND PELVIS WITH CONTRAST INDICATION: 63 years Female, R10.84, GENERALIZED ABDOMINAL PAIN.. COMPARISON: Abdominal CT of 07/16/2018 TECHNIQUE: Helical imaging performed diaphragm through the pubic symphysis utilizing IV and oral contrast. Axial, sagittal and coronal reconstructions are available. DOSE: CT imaging performedat this location utilizes radiation dose optimization technique which includes one or more of the followin) Automated exposure control; 2) Adjustment of the mA and/or kV accordingto patient's size; 3) Use of iterative reconstruction techniques. DLP (mGy-cm): 847 FINDINGS: LOWER CHEST: Limited visualization. No abnormalities. No pericardial effusion. SOLID ORGANS: Liver, spleen, and pancreas are within normal limits.Bilateral adrenal glands are normal. Bilateral renal cortical thinning. No gallstones. No biliary ductal dilatation. BOWEL: No bowel dilatation or bowel wall thickening. Small bowel surgical anastomosis fluid without regional inflammatory changes. Sigmoid colon is unremarkable. Perirectal fat planes are within normal limits. Nonvisualized appendix but no pericecal inflammatory changes PERITONEUM: No free intraperitoneal air or fluid. No stranding of the central mesentery. No peritoneal adenopathy by size criteria. RETROPERITONEUM: Abdominal aorta is normal caliber. No retroperitoneal adenopathy by size criteria. PELVIS: No pelvic mass. No pelvic free fluid. Urinary bladder is unremarkable. No pelvic adenopathy by size criteria. MUSCULOSKELETAL: No acute osseous abnormalities or destructive bony lesions. Vertebral body height are maintained. OTHER: None. IMPRESSION: Negative. PAGE 1 Signed Report (CONTINUED) Name: NNEA HERNANDEZ [facility] Kvng [place]gu[place] : 1955 Age/S: 63 / F [address] [place] [address] Blvd Unit #: [id number] Loc: [place] [address] Phys: Stef Connelly MD Acct: [id number] Dis Date: Status: REG CLI PHONE #: [phone] Exam Date: 02/13/2019 1110 FAX #: [phone] Reason: R10.84, GENERALIZED ABDOMINAL PAIN. EXAMS: CPT CODE: [id number] CT ABD PELVIS W/CONT 30869 <Continued> SL: [id number] Electronically Signed by Mary Gonzalez on02/13/2019 at 1141 Reported and signed by: Mikel Gonzalez M.D. CC: Stef Connelly MD; Allison Calvo MD Technologist:RT Nicki(Kaila)(CT)CTDI: DLP: Trnscb Date/Time: 02/13/2019 (1141) [email or web address] Orig Print D/T: S: 02/13/2019 (1142) CTDI: DLP: PAGE 2 Signed Report- XR SWLW FUNC W/C [id number] 12:54:00 FAX: Allison Barajas [phone] [place]: St: REG Name: DAVIDNENADior HO [facility] : 1955 Age/S: 63/F [address] [facility] Unit#: [id number] Loc: [place], [place]: [place] [address] Acct: [id number] Dis Date: Status: REG CLI PHONE #: [phone] Exam Date: 12/13/2018 1103 FAX #: [phone] Reason: DYSPHAGIA EXAMS: CPT CODE: [id number] XR SWLW FUNC W/C V 87809 Location: U19. MODIFIED BARIUM SWALLOW. HISTORY: Dysphagia. TECHNIQUE AND FINDINGS: Fluoroscopy time: 0.9 minutes. Dose area product (DAP Gycm2): 4.76. The exam was performed with speech therapy. The patient was given barium of various consistencies from thin liquids to solids, including apill, to drink and eat under fluoroscopic observation. No aspiration or penetration is seen ofliquids or solids.The patient was able to swallow a pill. IMPRESSION: No aspiration or penetration. at 3218 Reported and signed by: Shanell Newman M.D. CC: Allison Calvo MD Technologist: CRISTOFER REA Trnscrd Date/Time/By: 12/13/2018 (7380) : By: [email or web address] PAGE 1 Signed Report FAX: Allison Barajas [phone] [place]: St: REG Name: NENA HERNANDEZ [facility] : 1955 Age/S: 63/F [address] [facility] Unit #: [id number] Loc: [place], [place]: [place] [address] Acct: [id number] Dis Date: Status: REG CLI PHONE #: [phone] Exam Date: 12/13/2018 1103 FAX #: [phone] Reason: DYSPHAGIA EXAMS: CPT CODE: [id number] XR SWLW FUNC W/C V 33684 <Continued> Orig Print D/T: S: 12/13/2018 (9378) PAGE 2 Signed Report
[2020-02-29] MEDS ORDERED: DIPHENHYDRAMINE 50 MG/ML VIAL ONE (12:51)
[2020-02-29] MEDS ORDERED: dexAMETHasone 10 MG/ML VIAL ONE (12:52)
[2020-02-29] MEDS ORDERED: FAMOTIDINE 20 MG/2 ML VIAL IV ONE (12:52)
[2020-02-29] MEDS ORDERED: LORazepam 2 MG/ML VIAL ONE (13:19)
[2020-02-29] MEDS ORDERED: NA CHLORIDE 0.9% 1,000 ML ONE (13:19)
--- NOTE | 2020-02-29 14:54 | EDPHYS ---
Physician Documentation [facility] Name: Anastasiia Bonner Age: 64 yrs Sex: Female : 1955 Arrival Date: 02/29/2020 Time: 12:28 Bed 13 Private MD: ED Physician Luis Migule Moeller HPI: 02/28 12:59 This 64 yrs old Female presents to ER via Ambulatory with complaints of pm1 Allergic Reaction. 12:59 The patient presents with rash, that is diffuse. Onset: The symptoms/episode pm1 began/occurred today, 6 hours after taking Bactrim. Associated signs and symptoms: Pertinent positives: rash, shortness of breath, Pertinent negatives: chest pain, sore throat, facial swelling. Possible causes: antibiotics, Bactrim. At home the patient or guardian has treated the symptoms with Patient tried to administer her epi pen at home but she does not think that it injected. Severity of symptoms: in the emergency department the symptoms are worse. The patient has experienced a previous episode, approximately 10 days ago, angioedema due to ACEI. Patient is no longer taking lisinopril. Historical: - Allergies: 12:44 unknown medication; ll1 12:44 Lisinopril; ll1 - PMHx: 12:44 Hypertension; ll1 - PSHx: 12:44 Hernia repair; abdominal mesh; Partial removal of intestine; ll1 - Immunization history:: Adult Immunizations up to date. - Social history:: Patient/guardian denies using street drugs, Smoking status: unknown. ROS: 12:59 Constitutional: Negative for fever, chills, and weight loss, Cardiovascular: Negative pm1 for chest pain, palpitations, and edema. 12:59 Abdomen/GI: Negative for abdominal pain, nausea, vomiting, diarrhea, and constipation, Back: Negative for injury and pain, MS/Extremity: Negative for injury and deformity. 12:59 Neuro: Negative for headache, weakness, numbness, tingling, and seizure. 12:59 Respiratory: Positive for shortness of breath, Negative for cough, sputum production, wheezing. 12:59 Skin: Positive for rash, diffusely. Exam: 12:59 Constitutional: This is a well developed, well nourished patient who is awake, alert, pm1 and in no acute distress. Head/Face: Normocephalic, atraumatic. Eyes: Pupils equal round and reactive to light, extra-ocular motions intact. Lids and lashes normal. Conjunctiva and sclera are non-icteric and not injected. Cornea within normal limits. Periorbital areas with no swelling, redness, or edema. ENT: Nares patent. No nasal discharge, no septal abnormalities noted. Tympanic membranes are normal and external auditory canals are clear. Oropharynx with no redness, swelling, or masses, exudates, or evidence of obstruction, uvula midline. Mucous membranes moist. Neck: Trachea midline, no thyromegaly or masses palpated, and no cervical lymphadenopathy. Supple, full range of motion without nuchal rigidity, or vertebral point tenderness. No Meningismus. 12:59 Back: No spinal tenderness. No costovertebral tenderness. Full range of motion. 12:59 Cardiovascular: Exam negative for acute changes, Rate: normal, Rhythm: regular. 12:59 Respiratory: Exam negative for acute changes, respiratory distress, shortness of breath, wheezing. 12:59 Abdomen/GI: Exam negative for acute changes, Inspection: abdomen appears normal, Palpation: abdomen is soft and non-tender, in all quadrants, mass, is not appreciated, rebound tenderness, is not appreciated. 12:59 Skin: consistent with urticaria, on the back and abdomen. 12:59 Neuro: Exam negative for acute changes, Orientation: is normal, Mentation: is normal, Motor: is normal, moves all fours, Gait: is steady, at a normal pace, without difficulty. Vital Signs: 12:39 BP 159 / 89; Pulse 98; Resp 19; Temp 98.7; Pulse Ox 99% ; Pain 8/10; ll1 13:50 BP 106 / 64; Pulse 79; Resp 18; Pulse Ox 99% ; vc 15:10 BP 108 / 75; Pulse 80; Resp 17; Pulse Ox 98% ; vc MDM: 12:33 Patient medically screened. pm1 12:41 Data reviewed: vital signs. Data interpreted: Pulse oximetry: on room air is 99 %. pm1 Interpretation: normal. 14:45 Response to treatment: the patient's symptoms have markedly improved after treatment, pm1 and as a result, I will discharge patient. 14:46 Counseling: I had a detailed discussion with the patient and/or guardian regarding: the pm1 historical points, exam findings, and any diagnostic results supporting the discharge/admit diagnosis, the need for outpatient follow up, to return to the emergency department if symptoms worsen or persist or if there are any questions or concerns that arise at home. 14:46 ED course: Patient reports onset of urticaria about 6 hours after taking first pill of pm1 bactrim DS. Patient also took some Dulcolax at the same time with the bactrim for constipation. Effective for her constipation. Patient reports that the bactrim was prescribed two weeks ago and she just took her first dose today. Bactrim is a new antibiotic and likely the cause for her urticaria. Recommend discontinue the bactrim. Patient without any other complaints other than urticaria. 02/28 12:43 Order name: IV Saline Lock; Complete Time: 12:48 pm1 Administered Medications: 12:53 Drug: Decadron - Dexamethasone 10 mg Route: IVP; Site: right antecubital; hb 13:22 Follow up: Response: No adverse reaction; Anxiety increased; RASS: Restless (+1) ll1 12:53 Drug: Benadryl 25 mg Route: IVP; Site: right antecubital; hb 13:22 Follow up: Response: No adverse reaction; Anxiety increased; RASS: Restless (+1) ll1 12:53 Drug: Pepcid 20 mg Route: IVP; Site: right antecubital; hb 13:23 Follow up: Response: No adverse reaction; RASS: Restless (+1) ll1 13:12 Drug: Ativan 1 mg Route: IVP; Site: right antecubital; hb 15:10 Follow up: Response: No adverse reaction vc 13:12 Drug: NS 0.9% 1000 ml Route: IV; Rate: 1000 ml; Site: right antecubital; hb Disposition: 02/29/20 14:54 Discharged to Home. Impression: Urticaria, unspecified. - Condition is Stable. - Discharge Instructions: Hives. - Prescriptions for Pepcid 20 mg Oral Tablet - take 1 tablet by ORAL route every 12 hours for 10 days; 20 tablet. Medrol (Lex) 4 mg Oral Tablets, Dose Pack - take 1 tablet by ORAL route as directed - follow package instructions; 1 packet. - Medication Reconciliation Form, Thank You Letter, Antibiotic Education, Prescription Opioid Use form. - Follow up: Emergency Department; When: As needed; Reason: Worsening of condition. Follow up: Private Physician; When: 2 - 3 days; Reason: Recheck today's complaints, Continuance of care, Re-evaluation by your physician. - Problem is new. - Symptoms have improved. Addendum: 03/01/2020 20:22 Co-signature as Attending Physician, Luis Miguel Moeller MD I agree with the assessment and c alaniz plan of care. Signatures: Luis Miguel Moeller MD MD cha Marinas, Patrick, MACHINIST 2ND SHIFT MACHINIST 2ND SHIFT pm1 Lucia Rivera RN RN hb Melissa Skinner RN RN vc Pedro Vick RN RN ll1 Corrections: (The following items were deleted from the chart) 02/28 15:53 14:54 02/29/2020 14:54 Discharged to Home. Impression: Urticaria, unspecified. vc Condition is Stable. Forms are Medication Reconciliation Form, Thank You Letter, Antibiotic Education, Prescription Opioid Use. Follow up: Emergency Department; When: As needed; Reason: Worsening of condition. Follow up: Private Physician; When: 2 - 3 days; Reason: Recheck today's complaints, Continuance of care, Re-evaluation by your physician. Problem is new. Symptoms have improved. pm1
--- NOTE | 2020-02-29 14:54 | ER ---
Nurse's Notes [facility] Name: Anastasiia Bonner Age: 64 yrs Sex: Female : 1955 Arrival Date: 02/29/2020 Time: 12:28 Bed 13 Private MD: Diagnosis: Urticaria, unspecified Presentation: 02/28 12:39 Chief complaint: Patient states: Possible allergic reaction started today with ll1 rash/hives and SOB. Admitted here February 19 for same. No significant mouth swelling. Epi pen given at home at 1100. Coronavirus screen: Proceed with normal triage. Patient denies a cough. Patient denies shortness of breath or difficulty breathing. Patient denies measured and/or subjective temperature greater than 100.4F prior to today's visit. Patient denies travel on a cruise ship or to a country the [facility] currently lists as an affected area. Patient denies contact with known and/or suspected case of COVID-19. Ebola Screen: Patient denies travel to an Ebola-affected area in the 21 days before illness onset. Onset: The symptoms/episode began/occurred today. Anaphylaxis evaluation, abdominal pain. Initial Sepsis Screen: Does the patient meet any 2 criteria? HR > 90 bpm. No. Patient's initial sepsis screen is negative. Does the patient have a suspected source of infection? No. Patient's initial sepsis screen is negative. Risk Assessment: Do you want to hurt yourself or someone else? Patient reports no desire to harm self or others. Onset of symptoms was February 29, 2020. 12:39 Method Of Arrival: Ambulatory ll1 12:39 Acuity: MARJORIE 3 ll1 Historical: - Allergies: 12:44 unknown medication; ll1 12:44 Lisinopril; ll1 - PMHx: 12:44 Hypertension; ll1 - PSHx: 12:44 Hernia repair; abdominal mesh; Partial removal of intestine; ll1 - Immunization history:: Adult Immunizations up to date. - Social history:: Patient/guardian denies using street drugs, Smoking status: unknown. Screenin:26 Abuse screen: Denies threats or abuse. Nutritional screening: No deficits noted. ll1 Tuberculosis screening: No symptoms or risk factors identified. Fall Risk None identified. IV access (20 points). Total Hope Fall Scale indicates No Risk (0-24 pts). Assessment: 12:45 General: Appears uncomfortable, Behavior is anxious, restless. Pain: Complains of pain ll1 in back Pain currently is 8 out of 10 on a pain scale. Quality of pain is described as burning, Pain began 1 day ago. Is continuous. Neuro: No deficits noted. Cardiovascular: No deficits noted. Respiratory: Reports shortness of breath Airway is patent Trachea midline Respiratory effort is even, unlabored, Respiratory pattern is regular, symmetrical, Breath sounds are clear bilaterally. Onset: The symptoms/episode began/occurred today. GI: Abdomen is round Bowel sounds present X 4 quads. Abd is soft and non tender X 4 quads. Reports nausea. Derm: Rash noted that is red, raised, urticaria, on trunk, arms Reports burning, rash/hives started today. Gave herself epi shot at 1100 today. 13:51 Reassessment: Patient appears in no apparent distress at this time. Patient and/or vc family updated on plan of care and expected duration. Pain level reassessed. Vital Signs: 12:39 BP 159 / 89; Pulse 98; Resp 19; Temp 98.7; Pulse Ox 99% ; Pain 8/10; ll1 13:50 BP 106 / 64; Pulse 79; Resp 18; Pulse Ox 99% ; vc 15:10 BP 108 / 75; Pulse 80; Resp 17; Pulse Ox 98% ; vc ED Course: 12:28 Patient arrived in ED. mr 12:32 Kelley Hirschrick, LICENSED MARRIAGE AND FAMILY THERAPIST is PHCP. pm1 12:32 Luis Miguel Moeller MD is Attending Physician. pm1 12:42 Triage completed. ll1 12:42 Arm band placed on Patient placed in an exam room, on a stretcher. ll1 12:48 Initial lab(s) drawn, by me, held in ED. Inserted saline lock: 20 gauge in right jp3 antecubital area, using aseptic technique. Blood collected. Patient maintains SpO2 saturation greater than 95% on room air. 12:49 Bed in low position. Call light in reach. Side rails up X 1. Verbal reassurance given. jp3 Pulse ox on. NIBP on. 13:22 Pedro Vick RN is Primary Nurse. ll1 13:27 Noise minimized. Lights dimmed. Warm blanket given. ll1 13:50 Report received from Geovany Vick RN. vc Administered Medications: 12:53 Drug: Decadron - Dexamethasone 10 mg Route: IVP; Site: right antecubital; hb 13:22 Follow up: Response: No adverse reaction; Anxiety increased; RASS: Restless (+1) ll1 12:53 Drug: Benadryl 25 mg Route: IVP; Site: right antecubital; hb 13:22 Follow up: Response: No adverse reaction; Anxiety increased; RASS: Restless (+1) ll1 12:53 Drug: Pepcid 20 mg Route: IVP; Site: right antecubital; hb 13:23 Follow up: Response: No adverse reaction; RASS: Restless (+1) ll1 13:12 Drug: Ativan 1 mg Route: IVP; Site: right antecubital; hb 15:10 Follow up: Response: No adverse reaction vc 13:12 Drug: NS 0.9% 1000 ml Route: IV; Rate: 1000 ml; Site: right antecubital; hb Outcome: 14:54 Discharge ordered by . pm1 15:53 Patient left the ED. vc Signatures: Christy Meza SusanLarry samuel, LICENSED MARRIAGE AND FAMILY THERAPIST LICENSED MARRIAGE AND FAMILY THERAPIST pm1 Lucia Rivera, MAKI RN Jose Power jp3 Melissa Skinner RN RN vc Pedro Vick RN RN ll1
[2020-02-29 15:59] VITALS: TEMP 98.7
[2020-02-29 16:02] VITALS: BP 108/75; O2SAT 98
== END 2020-02-29 15:53 | disposition home or self-care (01) ==
LOC: ER 12:24
DX: L50.9 Urticaria, unspecified (principal); Z88.8 Allergy status to other drugs, medicaments and biological substances
CPT/HCPCS: 96374; 96375; 99284; J1100; J1200; J7030